=== PATIENT | male | born 1965 | race Caucasian/White ===

== ENCOUNTER 2017-07-12 18:54 | Inpatient (IN) | payer SELFPAY ==
[2017-07-12] MEDS ORDERED: Acetaminophen 325 MG TAB PO PRN (20:39)
[2017-07-12] MEDS ORDERED: HYDROcodone/Acetaminophen 5/325 mg Tablet PO PRN (20:39)
[2017-07-12] MEDS ORDERED: Piperacillin/Tazobactam 3.375 GM in Sodium Chloride 0.9% 100 ML IVPB SCH (20:45)
[2017-07-12] MEDS ORDERED: Piperacillin-Tazo-Dextrose,Iso 3.375 GM in Premix Bag 1 BAG IVPB SCH (21:00)
--- NOTE | 2017-07-12 21:15 | ULT ---
LEFT LOWER EXTREMITY VENOUS DOPPLER ULTRASOUND: History: Left lower extremity redness. Comparison: CT same day. FINDINGS: Real-time grayscale, color doppler and spectral analysis of the left lower extremity venous system wa s performed using a linear transducer. The common femoral, femoral, proximal portions of the greater saphenous and deep femoral veins as well as the popliteal and posterior tibial veins were interrogate d. Normal flow, augmentation, and compression. IMPRESSION: No deep venous thrombosis. POS: GRACE
[2017-07-12 21:55] VITALS: BMI 36.9
[2017-07-12] MEDS ORDERED: Ondansetron ODT 4 MG TAB SL PRN (22:06)
[2017-07-12] MEDS ORDERED: Ondansetron HCl/PF 4 MG/2 ML Vial IVP PRN (22:06)
[2017-07-12] MEDS ORDERED: Dextrose 5% in Water 1,000 ML IV PRN (22:07)
[2017-07-12] MEDS ORDERED: Dextrose 50% Abboject 50 ML SYRINGE IVP PRN (22:07)
[2017-07-12] MEDS ORDERED: Insulin Regular 300 UNITS/3 ML VIAL SC PRN (22:07)
[2017-07-12] MEDS ORDERED: Morphine 2 MG/ML SYRINGE SLOW IVP PRN ×2 (22:09→22:10)
[2017-07-12] MEDS: Sodium Chloride 0.9% 1,000 ML IV SCH (23:44)
[2017-07-12] MEDS: Famotidine 20 MG TAB PO SCH (23:45)
[2017-07-12] MEDS: Vancomycin HCl 1 GM in Premix Bag 1 BAG IVPB SCH (23:45)
[2017-07-13] MEDS: Piperacillin/Tazobactam 3.375 GM in Sodium Chloride 0.9% 100 ML IVPB SCH ×4 (03:58→20:23)
[2017-07-13 04:59] LABS: #Eosinphils 0.3 thou/uL (0.0-0.7); #Lymphocytes 1.6 thou/uL (1.20-3.40); %Basophils 0.4 % (0.0-1.0); %Eosinophils 3.5 % (0.0-10.0); %Monocytes 10.9 % (0.0-10.0); %Neutrophils 67.3 % (42.0-75.0); Hemoglobin 11.5 g/dL (14.0-18.0); Mean Corpuscular Hemoglobin 28.9 pg (27.0-31.0); Mean Corpuscular Volume 87.6 fl (80.0-94.0); Mean Platelet Volume 5.7 fL (7.4-10.4); Platelet Count 231 thou/uL (130-400); RBC Distribution Width 13.2 % (11.5-14.5); Red Blood Cell (RBC) Count 3.98 mill/uL (4.70-6.10)
[2017-07-13 05:22] LABS: Anion Gap 13 mmol/L (10-20); BUN (Urea Nitrogen) 17 mg/dL (8.9-20.6); Calc. Creatinine Clearance 124 mL/min (70-130); Carbon Dioxide 26 mmol/L (22-29); Chloride 102 mmol/L (98-107); Estimated GFR-MDRD 59; Glucose 115 mg/dL (70-105); Potassium 3.8 mmol/L (3.5-5.1); Sodium 137 mmol/L (136-145)
--- NOTE | 2017-07-13 06:17 | HP ---
CHIEF COMPLAINT: He came in because of cellulitis of left lower extremity. He was transferred from [place]. HISTORY OF PRESENT ILLNESS: This is a 52-year-old man with history of type 2 diabetes, status post amputation of left great toe in the past, couple years ago. He came in because he was having swelling of this left foot, leg, and toe for the last 3 days. He denies any fever, any chills, any chest pain, or any shortness of breath. When he came to ER, vital signs, pulse 77, blood pressure 161/79, respiratory rate 18, temperature 98.1. PAST MEDICAL HISTORY: He has hyperlipidemia, diabetes, hypertension. PAST SURGICAL HISTORY: Toe amputation, left great toe, few years ago. SOCIAL HISTORY: Denies alcohol use, drug use. No smoking history. In the ER, antibiotics given, Zosyn and vancomycin. FAMILY HISTORY: Positive for diabetes. REVIEW OF SYSTEMS: Constitutional: Negative. No chills. No fever. ENT: Negative for rhinorrhea, sore throat. Cardiovascular: Negative for chest pain , shortness of breath. Respiratory: Negative for cough, wheezing, or chest pain. Gastrointestinal: Negative for nausea, vomiting, or diarrhea. Genitourinary: Male. Negative for urinary urgency, frequency, hesitancy. Skin : Shows erythema on the left lower extremity. Endocrine: Negative for polyuria, polydipsia. PHYSICAL EXAMINATION: GENERAL: When examining, he is a middle-aged man lying in bed in no distress. VITAL SIGNS: Pulse 77, blood pressure 161/79, respiratory rate 18, temperature 98.1, saturation on room air. HEENT: Head is atraumatic, normocephalic. Pupils are round and reactive. Extraocular muscles intact. Ear and throat are normal. Tongue mucosa moist. NECK: Supple. No JVD. No thyromegaly. No carotid bruit. Trachea midline. No lymphadenopathy. LUNGS: Chest has a normal vesicular breathing. No added sound. No use of accessory muscles. No wheezing or rhonchi. CARDIOVASCULAR: S1, S2 audible. No S3, S4. 2/6 systolic murmur in left sternal border. ABDOMEN: Bowel sounds audible. Soft and nontender. No organomegaly. No guarding. No rigidity. EXTREMITIES: No pedal edema. No cyanosis. No clubbing. Left lower extremity : He has prior amputation of left great toe. Dense erythema in left foot with fluctuant stump of previous amputation. Lymphangitic spread in anterior leg up to the knee. Sensory, light touch. Pulses normal. Cap refill time is normal. NEUROLOGIC: Alert and oriented x3. No focal deficit. Cranial nerves II-XII normal. PSYCHIATRIC: Normal affect. Normal judgment. LABORATORY DATA: Lactate 0.7. Labs are not available at the time of dictation. ASSESSMENT AND PLAN: 1. Cellulitis of the left leg. Plan is to admit to the medical floor. IV Zosyn. IV vancomycin. Blood culture x2. IV fluid. 2. Type 2 diabetes. We will continue sliding scale. We will get the CBC and BMP stat. 3. Deep venous thrombosis prophylaxis with Lovenox. Surgical consultation will be obtained in the morning. CODE STATUS: FULL CODE. MTDD
[2017-07-13] MEDS: Famotidine 20 MG TAB PO SCH ×2 (08:13→20:23)
[2017-07-13] MEDS: Enoxaparin Sodium 40 MG/0.4 ML SYRINGE SC SCH (08:13)
[2017-07-13] MEDS: Vancomycin HCl 1 GM in Premix Bag 1 BAG IVPB SCH ×2 (09:22→23:00)
[2017-07-13] MEDS: Sodium Chloride 0.9% 1,000 ML IV SCH (11:00)
--- NOTE | 2017-07-13 13:05 | CON ---
DATE OF CONSULTATION: 07/13/2017 CHIEF COMPLAINT: Left foot cellulitis, abscess. HISTORY OF PRESENT ILLNESS: Patient is a 52-year-old obese diabetic white male. I saw him in 2014 f or left great toe osteomyelitis and performed a ray amputation which subsequently healed by secondary intention. I have not seen him in subsequent followup. At the time that I saw him, he was taking n o medications. He has subsequently been followed up with Dr. Baires and tells me he is on numerous medications. He cannot remember all of them, however, in his record are listed several medications f or hypertension, diabetes, and hypercholesterolemia. He notes that he has had erythema of his left foot for the past 3 weeks. He denies any injury to the foot or any pain or fever. He presented to the emergency room yesterday and was admitted to the [facility]. He has been afebrile with normal white blood cell count. I am consulted for furth er evaluation. He has already been started on intravenous antibiotics using Zosyn and vancomycin. PAST MEDICAL HISTORY: Hypertension, diabetes mellitus, and dyslipidemia. PAST SURGICAL HISTORY: Left great toe amputation. CURRENT MEDICATIONS: Apparently include carvedilol, Farxiga, insulin, lisinopril, metformin, simvast atin. ALLERGIES: No known drug allergies. PERSONAL/SOCIAL HISTORY: He is single, has never been , has no children. 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 REVIEW OF SYSTEMS: Otherwise, unremarkable. FAMILY HISTORY: Noncontributory. PHYSICAL EXAMINATION: VITAL SIGNS: Temperature 97.8, pulse 77, blood pressure 147/96. GENERAL: He is a well-developed, well-nourished, obese white male who is resting in bed in no acute distress. He is alert and oriented x3. He speaks very slowly and deliberately and I suspect that he is of diminished intellectual capacity. HEENT: Unremarkable. NECK: Supple. LUNGS: Clear to auscultation. CARDIAC: Regular rate and rhythm. ABDOMEN: Obese but soft and nontender. EXTREMITIES: He has significant erythema and swelling involving his left foot. He has a healed woun d from his left great toe amputation, but there is currently mildly raw area over the surface. There is a fluctuant area at the end of the toe amputation site. Because of the swelling, I am unable to palpate pulses, but his foot and lower leg are warm and I suspect circulation is adequate. PROCEDURE: The wound on the distal aspect of his left great toe was debrided using blunt dissection primarily. I sharply; however, excised the overlying skin and callus exposing ulcer which extended d own into the foot. When I would squeeze the foot, purulent material was expressed through this small tract. I dilated this with the hemostat. Cultures were obtained of this fluid. There is no foul s loly. I could not definitely palpate bone through the wound tract that I was able to probe. ASSESSMENT: Patient with a left foot abscess with obvious purulence. Cultures have been obtained. I will obtain the images of the foot to see if there is obvious evidence of osteomyelitis. If not, lelo falk may benefit from an MRI of the foot. He was on appropriate IV antibiotics and will require wound c are of the foot. I will discern over the next day or so whether he requires surgery for this or not. There is no obvious ulcer that penetrates to the bone and no definite clinical evidence of osteomye litis, pending radiologic studies.
--- NOTE | 2017-07-13 13:56 | RAD ---
LEFT FOOT 3 VIEWS: HISTORY: Osteomyelitis. FINDINGS: Lisfranc joint alignment is anatomic. Pes planus is apparent on the lateral view. There is amputation of the 1st ray at the level of the metatarsal head. No aggressive osseous destru ction remains. Osteophytosis is present throughout the foot. IMPRESSION: Big toe amputation. POS: LANETTE
--- NOTE | 2017-07-13 13:59 | PDOC.PN ---
- Subjective Encounter Start Date: 07/13/17 Encounter Start Time: 10:00 Pt seen for followup re: diabetic foot infection. Reports left foot pain. No fevers. - Objective MAR Reviewed: Yes Vital Signs & Weight: Vital Signs (12 hours) Temp Pulse Resp BP BP Pulse Ox 07/13/17 11:58 97.8 F 77 20 147/96 H 94 L 07/13/17 08:00 97.9 F 86 20 07/13/17 07:48 97.9 F 86 20 144/102 H 96 07/13/17 05:58 98.4 F 80 18 138/77 96 Weight Admit Weight 280 lb 1.6 oz Weight 280 lb 1.6 oz I&O: 07/12/17 07/13/17 07/14/17 06:59 06:59 06:59 Intake Total 1420 Output Total 1050 Balance 370 Result Diagrams: 07/13/17 04:11 07/13/17 04:11 Additional Labs: Accuchecks 07/13/17 07/13/17 07/12/17 11:42 04:52 21:54 POC Glucose 171 H 116 H 78 Phys Exam - Physical Examination Obese HEENT: moist MMs, oral pharynx no lesions Neck: supple Respiratory: clear to auscultation bilateral Cardiovascular: RRR Gastrointestinal: soft s/p L great toe amputation Neurological: moves all 4 limbs Psychiatric: normal affect Deviation from normal: L hennessy and foot rash Dx/Plan (1) Diabetic foot infection Code(s): E11.69 - TYPE 2 DIABETES MELLITUS WITH OTHER SPECIFIED COMPLICATION; L08.9 - LOCAL INFECTION OF THE SKIN AND SUBCUTANEOUS TISSUE, UNSP Status: Acute (2) HTN (hypertension) Code(s): I10 - ESSENTIAL (PRIMARY) HYPERTENSION Status: Chronic (3) Dyslipidemia Code(s): E78.5 - HYPERLIPIDEMIA, UNSPECIFIED Status: Chronic (4) Type II diabetes mellitus Status: Chronic - Plan continue antibiotics, PT/OT, out of bed/ambulate * . Monitor vital signs, titrate antihypertensives as needed. Continue statin. Continue IV antibiotics as below. Surgery consulted. Continue accuchecks, insulin sliding scale. Review of Systems - Review of Systems Constitutional: negative: fever, chills, sweats, weakness, malaise Respiratory: negative: Cough, Dry, Shortness of Breath, Hemoptysis, SOB with Excertion, Pleuritic Pain, Sputum, Wheezing Musculoskeletal: Leg Pain, Foot Pain. negative: Neck Pain, Shoulder Pain, Arm Pain, Back Pain, Hand Pain - Medications/Allergies Allergies/Adverse Reactions: Allergies Allergy/AdvReac Type Severity Reaction Status Date / Time No Known Allergies Allergy Verified 07/12/17 21:56 Medications: Current Medications Acetaminophen (Tylenol) 650 mg PO Q4H PRN PRN Reason: Headache/Fever or Pain Hydrocodone Bitart/Acetaminophen ([place] 5/325) 1 tab PO Q4H PRN PRN Reason: Moderate Pain (4-6) Enoxaparin Sodium (Lovenox) 40 mg SC 0900 [facility] Last Admin: 07/13/17 08:13 Dose: 40 mg Famotidine (Pepcid) 20 mg PO BID [facility] Last Admin: 07/13/17 08:13 Dose: 20 mg Sodium Chloride (Normal Saline 0.9%) 1,000 mls @ 100 mls/hr IV .Q10H [facility] Last Admin: 07/13/17 11:00 Dose: Not Given Piperacillin Sod/Tazobactam (Sod 3.375 gm/ Sodium Chloride) 100 mls @ 200 mls/ hr IVPB 0300,0900,1500,2100 [facility] Last Admin: 07/13/17 12:57 Dose: 100 mls Vancomycin HCl 1 gm/ Device 200 mls @ 200 mls/hr IVPB 1000,2200 [facility] Last Admin: 07/13/17 09:22 Dose: 200 mls Sodium Chloride (Flush - Normal Saline) 10 ml IVF Q12HR [facility] Last Admin: 07/13/17 08:16 Dose: Not Given Sodium Chloride (Flush - Normal Saline) 10 ml IVF PRN PRN PRN Reason: Saline Flush
[2017-07-13] MEDS ORDERED: Dextrose 5% in Water 1,000 ML IV PRN (14:36)
[2017-07-13] MEDS ORDERED: Dextrose 50% Abboject 50 ML SYRINGE IVP PRN (14:36)
[2017-07-14] MEDS: Sodium Chloride 0.9% 1,000 ML IV SCH ×2 (03:50→12:16)
[2017-07-14] MEDS: Piperacillin/Tazobactam 3.375 GM in Sodium Chloride 0.9% 100 ML IVPB SCH ×4 (03:53→20:54)
[2017-07-14] MEDS: Enoxaparin Sodium 40 MG/0.4 ML SYRINGE SC SCH (07:16)
[2017-07-14] MEDS: Famotidine 20 MG TAB PO SCH ×2 (07:16→20:53)
[2017-07-14] MEDS: Vancomycin HCl 1 GM in Premix Bag 1 BAG IVPB SCH ×2 (10:07→21:23)
[2017-07-14] MEDS: Insulin Regular 300 UNITS/3 ML VIAL SC PRN ×2 (12:18→20:55)
--- NOTE | 2017-07-14 12:38 | PDOC.PN ---
- Subjective Encounter Start Date: 07/14/17 Encounter Start Time: 09:20 Pt seen for followup re: diabetic foot infection. Denies fevers or chills. - Objective MAR Reviewed: Yes Vital Signs & Weight: Vital Signs (12 hours) Temp Pulse Resp BP Pulse Ox 07/14/17 08:00 97.9 F 70 20 136/82 96 07/14/17 07:30 98.0 F 70 18 07/14/17 05:00 98.0 F 70 18 146/84 H 94 L Weight Admit Weight 280 lb 1.6 oz Weight 280 lb 1.6 oz I&O: 07/13/17 07/14/17 07/15/17 06:59 06:59 06:59 Intake Total 1420 1920 Output Total 1050 1950 Balance 370 -30 Result Diagrams: 07/13/17 04:11 07/13/17 04:11 Additional Labs: Accuchecks 07/14/17 07/14/17 07/13/17 11:48 03:55 19:20 POC Glucose 208 H 144 H 140 H 07/13/17 15:09 POC Glucose 117 H Phys Exam - Physical Examination Obesity HEENT: moist MMs Neck: no nodes Respiratory: clear to auscultation bilateral Cardiovascular: RRR Gastrointestinal: soft, positive bowel sounds s/p L great toe amputation Neurological: moves all 4 limbs Psychiatric: normal affect Deviation from normal: L foot in dressing Dx/Plan (1) Diabetic foot infection Code(s): E11.69 - TYPE 2 DIABETES MELLITUS WITH OTHER SPECIFIED COMPLICATION; L08.9 - LOCAL INFECTION OF THE SKIN AND SUBCUTANEOUS TISSUE, UNSP Status: Acute (2) HTN (hypertension) Code(s): I10 - ESSENTIAL (PRIMARY) HYPERTENSION Status: Chronic (3) Dyslipidemia Code(s): E78.5 - HYPERLIPIDEMIA, UNSPECIFIED Status: Chronic (4) Type II diabetes mellitus Status: Chronic - Plan continue antibiotics, PT/OT, out of bed/ambulate * . Continue IV antibiotics as below, follow cultures. Continue accuchecks, insulin sliding scale. Titrate antihypertensives as needed, continue to monitor vital signs. Review of Systems - Review of Systems Constitutional: negative: fever, chills, sweats, weakness, malaise Respiratory: negative: Cough, Dry, Shortness of Breath, Hemoptysis, SOB with Excertion, Pleuritic Pain, Sputum, Wheezing Cardiovascular: negative: chest pain, palpitations, orthopnea, paroxysmal nocturnal dyspnea, edema, light headedness - Medications/Allergies Allergies/Adverse Reactions: Allergies Allergy/AdvReac Type Severity Reaction Status Date / Time No Known Allergies Allergy Verified 07/12/17 21:56 Medications: Current Medications Acetaminophen (Tylenol) 650 mg PO Q4H PRN PRN Reason: Headache/Fever or Pain Hydrocodone Bitart/Acetaminophen ([place] 5/325) 1 tab PO Q4H PRN PRN Reason: Moderate Pain (4-6) Dextrose/Water (Dextrose 50%) 25 gm IVP PRN PRN PRN Reason: HYPOGLYCEMIA PROTOCOL Enoxaparin Sodium (Lovenox) 40 mg SC 0900 [facility] Last Admin: 07/14/17 07:16 Dose: 40 mg Famotidine (Pepcid) 20 mg PO BID [facility] Last Admin: 07/14/17 07:16 Dose: 20 mg Glucagon (Glucagon) 1 mg IM PRN PRN PRN Reason: HYPOGLYCEMIA PROTOCOL Sodium Chloride (Normal Saline 0.9%) 1,000 mls @ 100 mls/hr IV .Q10H [facility] Last Admin: 07/14/17 12:16 Dose: Not Given Piperacillin Sod/Tazobactam (Sod 3.375 gm/ Sodium Chloride) 100 mls @ 200 mls/ hr IVPB 0300,0900,1500,2100 [facility] Last Admin: 07/14/17 08:52 Dose: 100 mls Vancomycin HCl 1 gm/ Device 200 mls @ 200 mls/hr IVPB 1000,2200 [facility] Last Admin: 07/14/17 10:07 Dose: 200 mls Dextrose/Water (D5w) 1,000 mls @ 0 mls/hr IV INF PRN; As Directed PRN Reason: HYPOGLYCEMIA PROTOCOL Insulin Human Regular (Humulin R) 0 units SC .MODERATE SLIDING SC PRN; Protocol PRN Reason: MODERATE SLIDING SCALE Last Admin: 07/14/17 12:18 Dose: 4 unit Sodium Chloride (Flush - Normal Saline) 10 ml IVF Q12HR [facility] Last Admin: 07/14/17 07:17 Dose: Not Given Sodium Chloride (Flush - Normal Saline) 10 ml IVF PRN PRN PRN Reason: Saline Flush
--- NOTE | 2017-07-14 15:28 | CON ---
DATE OF CONSULTATION: 07/14/2017 REASON FOR CONSULTATION: Left foot and left leg inflammatory process. HISTORY OF PRESENT ILLNESS: A 52-year-old patient that was known to me from prior visit in 2015, who has a history of type 2 diabetes mellitus and neuropathy. He underwent amputation of the left first toe for management of osteomyelitis. The area had healed properly. The patient had good vascular s upply. He leaves in ranch owned by his parents, and he works in a property as branch services manager, doing vari ous activities. Over the past few days, he has noticed an inflammatory process to left foot at the b ase of the amputation site ascending through the left leg. He went to see a doctor at [facility] Room and then transferred for admission. The patient had a CT scan on admission of the extremit y, this was noncontrast study and it showed no evidence of bony destruction, some soft tissue swellin g. Currently, Mr. Mann is awake and alert. Denies any headaches. No visual symptoms, sore throat , odynophagia, dysphagia. No cough or sputum production or chest pain. No abdominal pain or diarrhe a. No genitourinary symptoms. No other joint symptoms. PAST MEDICAL HISTORY: Diabetes mellitus type 2, prior left first toe amputation, hyperlipidemia, and hypertension. SOCIAL HISTORY: Never a smoker. Lives in his parents ranch in [place]. ALLERGIES: Negative. CURRENT MEDICATIONS: [place], dextrose, Lovenox, Pepcid, glucagon, insulin, Zosyn, and vancomycin. PHYSICAL EXAMINATION: VITAL SIGNS: Other than the mild elevation in systolic blood pressure, they are normal. No fever. SKIN: Shows the area of erythema involving the foot. There is an area of blistering and what appear s to be an abscess which may be superficial or deep at the base of the left first metatarsal distal a spect. There is erythema ascending from the foot towards the left leg all the way to the mid aspect of the left anterior leg. The patient has a peripheral IV access. No lymphadenopathy. HEENT: Ocular movements are conjugate. Still with quite a few teeth in place with some decay. NECK: Supple. No jugular venous distention or carotid bruits. No cardiomegaly. ABDOMEN: Slightly distended, but not tender. No ascites. No bladder distention or organomegaly. EXTREMITIES: Pulses are 1+ in dorsalis pedis and posterior tibialis. There is erythema in the left leg as noted above. NEUROLOGIC: Nonfocal. Cognitive function appears to be normal. LABORATORY: White cell count 9.0, hemoglobin 11.5, platelets 231, 67% neutrophils. Creatinine 1.28, calcium 10.0. Vancomycin trough 12. Cultures from the foot showed Staphylococcus aureus pending chisholm sceptibilities. Blood cultures x2, no growth for 48 hours. Plain films with no evidence of osteolys is. ASSESSMENT: Type 2 diabetes, neuropathy and now inflammatory changes of the left lower extremity, po ssible abscess at the base of the left first metatarsal ray. DISCUSSION: We will order an MRI to evaluate further that area may need surgical debridement at the little abscess. There is no osteo then just conversion to oral regimen for completion of treatment. The susceptibilities of the organism will have to be followed up for to decide on final regimen for discharge planning. If there is evidence of osteomyelitis, then will need IV treatment for protracte d period of time and may need further surgical intervention.
[2017-07-14] MEDS ORDERED: Gadobenate Dimeglumine 529 MG/1 ML (20ML VIAL) ONE (15:58)
--- NOTE | 2017-07-14 16:06 | PRG ---
DATE OF SERVICE: 07/14/2017 HISTORY OF PRESENT ILLNESS: This is hospital day #3 for Mr. Mann in treatment of a left foot absce ss with cellulitis. Yesterday, I drained a plantar abscess and debrided overlying callus at bedside. I cannot definitely find a communication with the bone. I subsequently ordered left foot films tone t revealed no definite evidence of bony destruction or osteomyelitis. I therefore recommended contin ued wound care and IV antibiotics and I consulted Dr. Augustine for his input regarding the type and rudolph th of antibiotic coverage. The initial cultures that I obtained yesterday show Staphylococcus aureus with susceptibilities still pending. The patient has no complaints. I have recommended that he be nonweightbearing on the left foot until this heals and he has already been seen by physical therapy regarding methods of offloading the foot . On examination, he remains afebrile with normal vital signs. His left leg is without any swelling down to the level of the ankle. He has a dressing present on his foot as this was changed by Wound care team today. ASSESSMENT AND PLAN: Patient with left foot abscess and cellulitis. He appears to be without eviden ce of osteomyelitis. Dr. Augustine has ordered an MRI to further evaluate this. I will continue to foll ow him at this point. I will check the wound to make sure to make an appropriate progress over the n ext day or two.
--- NOTE | 2017-07-14 19:04 | MRI ---
MRI LEFT FOOT WITH AND WITHOUT CONTRAST 07/14/17 INDICATION: Osteomyelitis, cellulitis. FINDINGS: There is abnormal marrow edema with enhancement involving the proximal aspect of the fourth metatarsa l. Evidence of prior partial amputation of the first ray. Scattered soft tissue edema is present. The re are focal small fluid collections at the residua of the first ray, some of which do communicate wi th the skin surface compatible with skin ulcerations. No large drainable abscess is otherwise demonst rated. There is mild postcontrast signal alteration of the fifth digit and may be related to artifact as there is no obvious edema in this region. IMPRESSION: 1. Findings most consistent with osteomyelitis at the proximal fourth metatarsal. 2. Soft tissue ulcerations/small abscess formation at the residua from great toe amputation invo lving predominantly the plantar aspect of the soft tissues. 3. Cellulitis. 4. There is signal alteration on postcontrast imaging of the fifth digit which may be related to artifact given absence of obvious edema by precontrast imaging. POS: MELINDA
[2017-07-15] MEDS: Sodium Chloride 0.9% 1,000 ML IV SCH ×3 (00:07→21:14)
[2017-07-15] MEDS: Piperacillin/Tazobactam 3.375 GM in Sodium Chloride 0.9% 100 ML IVPB SCH ×3 (02:25→14:19)
[2017-07-15] MEDS: Insulin Regular 300 UNITS/3 ML VIAL SC PRN ×3 (05:48→21:09)
[2017-07-15] MEDS: Enoxaparin Sodium 40 MG/0.4 ML SYRINGE SC SCH (08:34)
[2017-07-15] MEDS: Famotidine 20 MG TAB PO SCH ×2 (08:34→21:09)
[2017-07-15] MEDS: Vancomycin HCl 1 GM in Premix Bag 1 BAG IVPB SCH (09:15)
--- NOTE | 2017-07-15 16:40 | PDOC.PN ---
- Subjective Encounter Start Date: 07/15/17 Encounter Start Time: 09:40 Pt seen for followup re: diabetic foot infection. Denies fevers or chills. - Objective MAR Reviewed: Yes Vital Signs & Weight: Vital Signs (12 hours) Temp Pulse Resp BP Pulse Ox 07/15/17 12:02 98.0 F 83 18 149/74 H 94 L 07/15/17 08:30 97.8 F 68 16 96 07/15/17 07:59 97.8 F 68 16 152/85 H 96 07/15/17 04:48 97.8 F 65 18 147/86 H 97 Weight Admit Weight 280 lb 1.6 oz Weight 280 lb 1.6 oz I&O: 07/14/17 07/15/17 07/16/17 06:59 06:59 06:59 Intake Total 1919 1899 Output Total 1949 1999 Balance -30 -100 Result Diagrams: 07/13/17 04:11 07/13/17 04:11 Additional Labs: Accuchecks 07/15/17 07/15/17 07/14/17 12:02 05:48 20:52 POC Glucose 185 H 172 H 172 H 07/14/17 16:40 POC Glucose 144 H Phys Exam - Physical Examination Obese HEENT: moist MMs Neck: supple Respiratory: clear to auscultation bilateral Cardiovascular: RRR Gastrointestinal: soft Neurological: moves all 4 limbs Psychiatric: normal affect Deviation from normal: L foot dressing Dx/Plan (1) Diabetic foot infection Code(s): E11.69 - TYPE 2 DIABETES MELLITUS WITH OTHER SPECIFIED COMPLICATION; L08.9 - LOCAL INFECTION OF THE SKIN AND SUBCUTANEOUS TISSUE, UNSP Status: Acute (2) HTN (hypertension) Code(s): I10 - ESSENTIAL (PRIMARY) HYPERTENSION Status: Chronic (3) Dyslipidemia Code(s): E78.5 - HYPERLIPIDEMIA, UNSPECIFIED Status: Chronic (4) Type II diabetes mellitus Status: Chronic - Plan continue antibiotics, PT/OT * . Continue IV antibiotics as below. Osteomyelitis on MRI, awqait surgical input. Cellulitic area improved. Continue accuchecks, insulin. Review of Systems - Review of Systems Constitutional: negative: fever, chills, sweats, weakness, malaise Respiratory: negative: Cough, Dry, Shortness of Breath, Hemoptysis, SOB with Excertion, Pleuritic Pain, Sputum, Wheezing Cardiovascular: negative: chest pain, palpitations, orthopnea, paroxysmal nocturnal dyspnea, edema, light headedness Musculoskeletal: Leg Pain - Medications/Allergies Allergies/Adverse Reactions: Allergies Allergy/AdvReac Type Severity Reaction Status Date / Time No Known Allergies Allergy Verified 07/12/17 21:56 Medications: Current Medications Acetaminophen (Tylenol) 650 mg PO Q4H PRN PRN Reason: Headache/Fever or Pain Hydrocodone Bitart/Acetaminophen ([place] 5/325) 1 tab PO Q4H PRN PRN Reason: Moderate Pain (4-6) Dextrose/Water (Dextrose 50%) 25 gm IVP PRN PRN PRN Reason: HYPOGLYCEMIA PROTOCOL Enoxaparin Sodium (Lovenox) 40 mg SC 0900 [facility] Last Admin: 07/15/17 08:34 Dose: 40 mg Famotidine (Pepcid) 20 mg PO BID [facility] Last Admin: 07/15/17 08:34 Dose: 20 mg Glucagon (Glucagon) 1 mg IM PRN PRN PRN Reason: HYPOGLYCEMIA PROTOCOL Sodium Chloride (Normal Saline 0.9%) 1,000 mls @ 100 mls/hr IV .Q10H [facility] Last Admin: 07/15/17 09:15 Dose: 1,000 mls Piperacillin Sod/Tazobactam (Sod 3.375 gm/ Sodium Chloride) 100 mls @ 200 mls/ hr IVPB 0300,0900,1500,2100 [facility] Last Admin: 07/15/17 14:19 Dose: 100 mls Vancomycin HCl 1 gm/ Device 200 mls @ 200 mls/hr IVPB 1000,2200 [facility] Last Admin: 07/15/17 09:15 Dose: 200 mls Dextrose/Water (D5w) 1,000 mls @ 0 mls/hr IV INF PRN; As Directed PRN Reason: HYPOGLYCEMIA PROTOCOL Insulin Human Regular (Humulin R) 0 units SC .MODERATE SLIDING SC PRN; Protocol PRN Reason: MODERATE SLIDING SCALE Last Admin: 07/15/17 12:25 Dose: 2 unit Sodium Chloride (Flush - Normal Saline) 10 ml IVF Q12HR [facility] Last Admin: 07/15/17 08:34 Dose: Not Given Sodium Chloride (Flush - Normal Saline) 10 ml IVF PRN PRN PRN Reason: Saline Flush
--- NOTE | 2017-07-15 17:17 | PRG ---
DATE OF SERVICE: 07/15/2017 SUBJECTIVE: No headaches, visual symptoms, sore throat, odynophagia, or dysphagia. No cough or sput um production. No chest pain. Much pain in the foot area. OBJECTIVE: VITAL SIGNS: Normal except for slight elevation in systolic blood pressure. LUNGS: Clear. HEART: S1, S2, regular rate. ABDOMEN: Soft. EXTREMITIES: The left foot with no changes in the appearance. LABORATORY DATA: White cell count 9000, hemoglobin 11.5 and fluid cultures with methicillin-sensitiv e Staphylococcus aureus. MRI with prior amputation of first ray, scattered soft tissue edema, focal small fluid collections residual first ray some which communicate with skin surface. No drainable ab scess, mild postcontrast signal alteration of the fifth digit, abnormal marrow edema with enhancement in the proximal aspect of the fourth metatarsal. ASSESSMENT AND DISCUSSION: Type 2 diabetes, neuropathy, inflammatory changes left lower extremity an d MRI with findings that are worrisome for metatarsal osteo. The foot x-ray did not show osseous sangeeta truction and we could attempt medical treatment with Rocephin plus oral Flagyl and PICC line placemen t.
[2017-07-15] MEDS: cefTRIAXone\\ROCEPHIN 2 GM in Sodium Chloride 0.9% 100 ML IVPB SCH (18:15)
[2017-07-15] MEDS: metroNIDAZOLE 500 MG TAB PO SCH (21:09)
[2017-07-16] MEDS: Sodium Chloride 0.9% 1,000 ML IV SCH ×3 (02:13→12:59)
[2017-07-16] MEDS: Insulin Regular 300 UNITS/3 ML VIAL SC PRN ×4 (05:58→20:32)
[2017-07-16] MEDS: Enoxaparin Sodium 40 MG/0.4 ML SYRINGE SC SCH (09:26)
[2017-07-16] MEDS: Famotidine 20 MG TAB PO SCH ×2 (09:27→20:00)
[2017-07-16] MEDS: metroNIDAZOLE 500 MG TAB PO SCH ×3 (09:27→20:00)
--- NOTE | 2017-07-16 14:13 | PDOC.PN ---
- Subjective Encounter Start Date: 07/16/17 Encounter Start Time: 09:00 Pt seen for followup re: osteomyelitis. Says he has a small amount of pain L foot. - Objective MAR Reviewed: Yes Vital Signs & Weight: Vital Signs (12 hours) Temp Pulse Resp BP Pulse Ox 07/16/17 08:38 97.5 F L 72 20 161/94 H 93 L 07/16/17 08:00 97.5 F L 72 20 07/16/17 04:00 97.5 F L 71 18 153/85 H 96 Weight Admit Weight 280 lb 1.6 oz Weight 280 lb 1.6 oz I&O: 07/15/17 07/16/17 07/17/17 06:59 06:59 06:59 Intake Total 1899 2900 Output Total 1999 1725 1850 Balance -100 1175 -1850 Result Diagrams: 07/13/17 04:11 07/13/17 04:11 Additional Labs: Accuchecks 07/16/17 07/16/17 07/15/17 11:05 04:32 19:16 POC Glucose 263 H 216 H 161 H 07/15/17 16:52 POC Glucose 133 H Phys Exam - Physical Examination Obesity HEENT: moist MMs Respiratory: clear to auscultation bilateral Cardiovascular: RRR, no rub Gastrointestinal: soft, non-tender Neurological: moves all 4 limbs Psychiatric: normal affect Deviation from normal: L foot dressing Dx/Plan (1) Osteomyelitis Code(s): M86.9 - OSTEOMYELITIS, UNSPECIFIED Status: Acute (2) Diabetic foot infection Code(s): E11.69 - TYPE 2 DIABETES MELLITUS WITH OTHER SPECIFIED COMPLICATION; L08.9 - LOCAL INFECTION OF THE SKIN AND SUBCUTANEOUS TISSUE, UNSP Status: Acute (3) HTN (hypertension) Code(s): I10 - ESSENTIAL (PRIMARY) HYPERTENSION Status: Chronic (4) Dyslipidemia Code(s): E78.5 - HYPERLIPIDEMIA, UNSPECIFIED Status: Chronic (5) Type II diabetes mellitus Status: Chronic - Plan continue antibiotics, PT/OT, out of bed/ambulate * . Continue IV ceftriaxone. Awaiting PICC line placement. Continue accuchecks, insulin. Review of Systems - Review of Systems Constitutional: negative: fever, chills, sweats, weakness, malaise Cardiovascular: negative: chest pain, palpitations, orthopnea, paroxysmal nocturnal dyspnea, edema, light headedness - Medications/Allergies Allergies/Adverse Reactions: Allergies Allergy/AdvReac Type Severity Reaction Status Date / Time No Known Allergies Allergy Verified 07/12/17 21:56 Medications: Current Medications Acetaminophen (Tylenol) 650 mg PO Q4H PRN PRN Reason: Headache/Fever or Pain Hydrocodone Bitart/Acetaminophen ([place] 5/325) 1 tab PO Q4H PRN PRN Reason: Moderate Pain (4-6) Dextrose/Water (Dextrose 50%) 25 gm IVP PRN PRN PRN Reason: HYPOGLYCEMIA PROTOCOL Enoxaparin Sodium (Lovenox) 40 mg SC 0900 [facility] Last Admin: 07/16/17 09:26 Dose: 40 mg Famotidine (Pepcid) 20 mg PO BID [facility] Last Admin: 07/16/17 09:27 Dose: 20 mg Glucagon (Glucagon) 1 mg IM PRN PRN PRN Reason: HYPOGLYCEMIA PROTOCOL Sodium Chloride (Normal Saline 0.9%) 1,000 mls @ 100 mls/hr IV .Q10H [facility] Last Admin: 07/16/17 12:59 Dose: 1,000 mls Dextrose/Water (D5w) 1,000 mls @ 0 mls/hr IV INF PRN; As Directed PRN Reason: HYPOGLYCEMIA PROTOCOL Ceftriaxone Sodium 2 gm/ (Sodium Chloride) 100 mls @ 200 mls/hr IVPB Q24HR [facility] Last Admin: 07/15/17 18:15 Dose: 100 mls Insulin Human Regular (Humulin R) 0 units SC .MODERATE SLIDING SC PRN; Protocol PRN Reason: MODERATE SLIDING SCALE Last Admin: 07/16/17 13:00 Dose: 6 unit Metronidazole (Flagyl) 500 mg PO TID [facility] Last Admin: 07/16/17 09:27 Dose: 500 mg Sodium Chloride (Flush - Normal Saline) 10 ml IVF Q12HR [facility] Last Admin: 07/16/17 09:27 Dose: Not Given Sodium Chloride (Flush - Normal Saline) 10 ml IVF PRN PRN PRN Reason: Saline Flush
--- NOTE | 2017-07-16 15:37 | SPC ---
LEFT UPPER EXTREMITY PICC LINE ULTRASOUND AND FLUOROSCOPIC GUIDANCE: PROCEDURE: After informed consent had been obtained, the patient was placed on the interventional suite table in a supine position. The left arm was prepped and draped in a standard sterile fashion. Topical anes thesia was achieved utilizing 1% Lidocaine and sodium bicarbonate. Under real-time sonography, the b asilic vein of the left upper extremity was accessed with a small caliber needle with venous flash pr esent at the needle hub. A guidewire was then advanced in to the needle, and under real-time fluoros copy, the guidewire was advanced to the level of the inferior vena cava to confirm appropriate venous placement. A small skin incision was made and the needle was removed. Over the guidewire, a single lumen PICC line was cut to 44 cm. The PICC line was advanced under real-time fluoroscopy over the g uidewire to the level of the cavoatrial junction. The guidewire and peelaway sheath were then remove d. PICC line flushed and aspirated appropriately and was secured to the lumen upper extremity. Ther e were no procedural complications. Radiation Exposure Data: 0 minutes intermittent fluoroscopy, 228 mGy*cm^2. IMPRESSION: Technically successful ultrasound and fluoroscopic-guided left PICC line placement, as above. POS: LANETTE
[2017-07-16] MEDS ORDERED: Heparin 1,000 UNITS/ML VIAL ONE (15:47)
[2017-07-16] MEDS: cefTRIAXone\\ROCEPHIN 2 GM in Sodium Chloride 0.9% 100 ML IVPB SCH (17:38)
[2017-07-17] MEDS: Sodium Chloride 0.9% 1,000 ML IV SCH ×2 (03:15→07:56)
[2017-07-17] MEDS: Insulin Regular 300 UNITS/3 ML VIAL SC PRN ×2 (05:36→12:57)
[2017-07-17 07:43] VITALS: BP 138/63; TEMP 97.6
[2017-07-17] MEDS: Famotidine 20 MG TAB PO SCH (07:52)
[2017-07-17] MEDS: Enoxaparin Sodium 40 MG/0.4 ML SYRINGE SC SCH (07:53)
[2017-07-17] MEDS: metroNIDAZOLE 500 MG TAB PO SCH ×2 (07:53→12:57)
--- NOTE | 2017-07-17 08:44 | PRG ---
DATE OF SERVICE: 07/17/2017 HISTORY OF PRESENT ILLNESS: Mr. Mann has been hospitalized for 6 days now in regards to the ulcer on the plantar aspect of his left foot with associated abscess and cellulitis. The abscess was drain ed and foot was debrided at bedside by myself on the day he arrived. Subsequent MRI ordered by Dr. Laz felipe did suggest osteomyelitis of the distal aspect of the second metatarsal bone. Since there was n o direct ulcer communication with the bone and the abscess had been appropriately drained, I recommen ded nonoperative treatment of this. Dr. Augustine has therefore recommended a 6-week course of intraveno us antibiotics. The patient has no complaints. He has been undergoing wound care and receiving antibiotics since adm ission to the hospital. Final cultures from the area that I drained revealed Staphylococcus aureus that is sensitive to most antibiotics and is not MRSA. It is sensitive to all of the cephalosporins and he is currently receiv ing Rocephin. PHYSICAL EXAMINATION: VITAL SIGNS: He is afebrile, pulse is 66, blood pressure 138/63. EXTREMITIES: His left foot dressing was intact and not taken down. There is no evidence of swelling or erythema involving the ankle or lower leg. ASSESSMENT: Patient with diabetic left foot ulcer with underlying infection and possible osteomyelit is. PLAN: Continue IV antibiotics and wound care. The patient may be discharged at anytime from my [facility]. There is nothing further surgical to do. He already has a PICC line. As soon as his outpat ient intravenous antibiotics and wound care can be arranged then he is stable for discharge. I will see him in the future as needed.
--- NOTE | 2017-07-17 11:25 | DIS ---
DATE OF ADMISSION: 07/12/2017 DATE OF DISCHARGE: 07/17/2017 PRIMARY CARE PHYSICIAN: Sandro Baires MD DISCHARGE DIAGNOSES: 1. Diabetic foot infection. 2. Osteomyelitis of the proximal fourth metatarsal. 3. Cellulitis. CONSULTATIONS DURING THIS HOSPITALIZATION: General Surgery, Dr. Pruitt; Infectious Diseases, Dr. Mishra. CONDITION OF PATIENT ON THE DAY OF DISCHARGE: Stable. I assessed Mr. Mann on the day of discharge . He denies any chest pain or shortness of breath. Vital signs are stable. Foot wound looks clean. DISCHARGE MEDICATIONS: Ceftriaxone 2 g intravenously daily until 08/28/2017, Flagyl 500 mg 3 times a day until 08/16/2017, Coreg 2.5 mg 2 times a day, Farxiga 5 mg daily, Toujeo at bedtime as directed, lisinopril 5 mg 2 times a day, metformin 1000 mg daily, Flagyl 500 mg 3 times a day until 08/16/2017 , and simvastatin 40 mg at bedtime. HOSPITAL COURSE: Mr. Mann is a pleasant 52-year-old gentleman who was admitted to [facility] for left diabetic foot infection. He was seen by General Surgery Service. He unde rwent debridement of left foot abscess with obvious purulence. He was treated with intravenous antib iotics. He went on to have a left lower extremity MRI, which showed findings most consistent with os teomyelitis of the proximal fourth metatarsal, soft tissue ulcerations/small abscess formation at the residual from great toe amputation, cellulitis. He was seen by Infectious Diseases Service and recommended intravenous antibiotic therapy. He had a PICC line placed. He is being discharged home in a stable condition. Wound cultures grew Staphyloco ccus aureus that was resistant to piperacillin, ofloxacin, moxifloxacin, levofloxacin, ciprofloxacin, amoxicillin, but sensitive to amoxicillin/clavulanic acid, azithromycin, cefaclor, cefepime, cefotax varinder, ceftazidime, ceftriaxone, cefuroxime, clarithromycin, clindamycin, doxycycline, erythromycin, ge ntamicin, imipenem, linezolid, oxacillin, rifampin, tetracycline, trimethoprim/sulfamethoxazole, and vancomycin. At this point in time, arrangements are being made for intravenous therapy either at [place] or in [facility]. Many thanks for allowing me to participate in your patient's care. Please feel free to contact me wi th any questions or concerns. DISCHARGE DESTINATION: Home. TOTAL AMOUNT OF TIME SPENT COORDINATING THIS DISCHARGE: 33 minutes.
[2017-07-17] MEDS: cefTRIAXone\\ROCEPHIN 2 GM in Sodium Chloride 0.9% 100 ML IVPB SCH (12:57)
[2017-07-17] MEDS ORDERED: cefTRIAXone\\ROCEPHIN 2 GM in Sodium Chloride 0.9% 100 ML IVPB SCH (13:00)
== END 2017-07-17 14:17 | disposition home or self-care (01) | DRG 638 ==
LOC: ERS 18:54 → T4-B 21:33
PROVIDERS: ADMIT Family Medicine; ATTEND Family Medicine
PROC: 0HBNXZZ Excision of Left Foot Skin, External Approach (ICD-10-PCS; principal; 2017-07-12)
PROC: 02HV33Z Insertion of Infusion Device into Superior Vena Cava, Percutaneous Approach (ICD-10-PCS; 2017-07-16)
PROC: B5181ZA Fluoroscopy of Superior Vena Cava using Low Osmolar Contrast, Guidance (ICD-10-PCS; 2017-07-16)
DX: E11.69 Type 2 diabetes mellitus with other specified complication (principal); L03.116 Cellulitis of left lower limb; M86.9 Osteomyelitis, unspecified; L02.612 Cutaneous abscess of left foot; B95.61 Methicillin susceptible Staphylococcus aureus infection as the cause of diseases classified elsewhere; E66.9 Obesity, unspecified; E78.5 Hyperlipidemia, unspecified; I10 Essential (primary) hypertension; Z89.412 Acquired absence of left great toe; Z68.37 Body mass index [BMI] 37.0-37.9, adult; Z79.84 Long term (current) use of oral hypoglycemic drugs
CPT/HCPCS: 36415; 36416; 36569; 80048; 80202; 83605; 85025; 87070; 87077; 87186; 87205; 96374; A4216; A9579; C1751; G8978-GP-CJ; G8979-GP-CI; J0696; J1644; J1650; J2543; J3370; J7050

== ENCOUNTER 2020-08-14 13:52 | Inpatient (IN) | payer SELFPAY ==
[2020-08-14 14:51] LABS: Hemoglobin 11.6 g/dL (14.0-18.0); Mean Corpuscular Hemoglobin 30.5 pg (27.0-31.0); Mean Corpuscular Volume 87.7 fL (78.0-98.0); Red Blood Cell (RBC) Count 3.82 mill/uL (4.70-6.10); White Blood Cell (WBC) Count 10.5 thou/uL (4.8-10.8)
[2020-08-14 14:52] LABS: #Neutrophils 8.7 thou/uL (1.40-6.50); %Basophils 0.3 % (0.0-1.0); %Eosinophils 0.6 % (0.0-10.0); %Lymphocytes 10.4 % (21.0-51.0); %Monocytes 5.7 % (0.0-10.0); Mean Corpuscular HGB CONC 34.7 g/dL (32.0-36.0); Mean Platelet Volume 6.5 fL (7.4-10.4); Platelet Count 252 thou/uL (130-400); RBC Distribution Width 14.2 % (11.5-14.5)
[2020-08-14] MEDS ORDERED: Piperacillin/Tazobactam 3.375 GM VIAL ONE (14:52)
[2020-08-14 14:53] LABS: #Eosinphils 0.1 thou/uL (0.0-0.7); #Lymphocytes 1.1 thou/uL (1.20-3.40); #Monocytes 0.6 thou/uL (0.11-0.59)
[2020-08-14] MEDS ORDERED: VANCOMYCIN 2 GRAM/400 ML BAG 2 GM in Premix Bag 1 BAG IVPB SCH (15:00)
--- NOTE | 2020-08-14 15:04 | RAD ---
LEFT FOOT 3 VIEWS: Date: 08/14/2020 HISTORY: Water blisters on foot. Left foot pain. COMPARISON: 07/05/2020. FINDINGS: Postop changes of disarticulation at the first MTP joint are again seen. There chronic remodeling of the first metatarsal head. Subluxations of the second and third MTP joints are again noted. No acute fracture, dislocation, bony destruction, or periosteal reaction is seen. IMPRESSION: No definite evidence of osteomyelitis. POS: SERENITY
--- NOTE | 2020-08-14 15:07 | RAD ---
XR Chest 1 View Portable HISTORY: Concern for infection. COMPARISON: 07/21/2020 exam FINDINGS: Heart size and mediastinum are within normal limits. The lungs are clear of any infiltrates . No bony findings. IMPRESSION: No active intrathoracic disease.
[2020-08-14 15:28] LABS: ALT (SGPT) 25 U/L (8-55); AST (SGOT) 38 U/L (5-34); Albumin 4.4 g/dL (3.5-5.0); Alkaline Phosphatase 69 U/L (40-110); Anion Gap 16 mmol/L (10-20); BUN (Urea Nitrogen) 38 mg/dL (8.4-25.7); Bilirubin, Total 0.5 mg/dL (0.2-1.2); Calc. Creatinine Clearance 0 mL/min (70-130); Carbon Dioxide 24 mmol/L (22-29); Chloride 105 mmol/L (98-107); Glucose 109 mg/dL (70-105); Potassium 4.8 mmol/L (3.5-5.1); Protein, Total 7.4 g/dL (6.0-8.3); Sodium 140 mmol/L (136-145)
--- NOTE | 2020-08-14 17:13 | ULT ---
ARTERIAL DOPPLER STUDY LEFT LOWER EXTREMITY: Indications: Left lower extremity pain and edema. Redness and blisters to the left leg. Technique: Arteries of the left lower extremity evaluated with ultrasound and doppler with color dopp ler and spectral analysis. FINDINGS: The left common femoral artery shows a biphasic waveform. The profunda is monophasic. Superficial femoral arteries shows triphasic waveform in its proximal mid portion. Biphasic waveform distally. The popliteal artery is triphasic. The anterior tibial artery and posterior tibial artery are triphasic. Dorsal pedis is biphasic. IMPRESSION: No evidence of significant arterial disease in the left lower extremity. Profunda is monophasic. This may be technical in nature. The other arteries show either biphasic or triphasic waveform and demons trate normal velocities. POS: AGW
[2020-08-14] MEDS ORDERED: Dextrose 50% Abboject 50 ML SYRINGE ONE (17:21)
[2020-08-14 18:15] LABS: SARS-CoV-2 NAA Rapid Test Not Detected (NotDetected)
[2020-08-14] MEDS ORDERED: Acetaminophen 650 MG Suppository PR PRN (18:55)
[2020-08-14] MEDS ORDERED: Acetaminophen 325 MG TAB PO PRN (18:55)
[2020-08-14] MEDS ORDERED: Ondansetron ODT 4 MG TAB PO PRN (18:55)
[2020-08-14] MEDS ORDERED: Ondansetron PF 4 MG/2 ML Vial IVP PRN (18:55)
[2020-08-14] MEDS ORDERED: HumaLOG 300 UNITS/3 ML VIAL SC PRN (19:18)
[2020-08-14] MEDS ORDERED: Dextrose 50% Abboject 50 ML SYRINGE SLOW IVP PRN (19:18)
--- NOTE | 2020-08-14 19:46 | PDOC.HHP ---
Hospitalist HPI History of Present Illness: ADMISSION DATE: 08/14/2020 TIME OF ASSESSMENT: 1800 PRIMARY CARE PHYSICIAN: Dr. Baires CHIEF COMPLAINT: Wound to left second toe HPI: This is a 55-year-old gentleman who presents to the emergency department after noticing that the tip of his left second toe was hanging off. He does not recall sustaining any injury and states that he has had what looked like a "hammertoe" for some time that he had been caring for with disinfectant spray. Patient states that he had a very small brown blister similar to what he has on the right foot. States this morning he suddenly realized the tip of his second toe was hanging off. He denies any purulent discharge and had minimal bleeding. Denies having any erythema or warmth to the foot or lower leg. He has chronic pallor to both feet. Denies having any pain associated with this. He has had amputation of the left great toe in the past. He overall feels well and is without any complaints. Denies having any recent fevers, chills or sweats. No headaches or dizziness. No nausea or vomiting. Denies any abdominal discomfort. No bowel changes or urinary symptoms. All other review of systems are negative. ED COURSE: White blood cell count was 10.5, hemoglobin 11.6, hematocrit 32.5, platelets 252, neutrophils 73%. Potassium 4.8, BUN 38, creatinine 1.0, GFR 40, glucose 109, LFTs normal except for AST which was slightly elevated at 30. Left foot x-ray showed no definite evidence of osteomyelitis. Ultrasound arterial Doppler of the left lower extremity was done showing no evidence of significant arterial disease in the left lower extremity. He had influenza and Covid testing done in the emergency department all of which were negative. A baseline chest x-ray was done showing no active intrathoracic disease. In the emergency department he received an amp of D50 due to glucose of 105. He was started on IV antibiotics with Zosyn and vancomycin for suspected diabetic foot infection. He also received 2 L of normal saline IV. Allergies/Adverse Reactions: Allergy/AdvReac Type Severity Reaction Status Date / Time No Known Allergies Allergy Verified 07/12/17 21:56 Home Medications: Medication Instructions Recorded Confirmed Type Carvedilol [Coreg] 6.25 mg PO BID #0 tab 09/07/14 07/12/17 Rx Lisinopril [Zestril] 5 mg PO BID #0 tab 09/07/14 07/12/17 Rx Simvastatin 40 mg PO HS #0 tablet 09/07/14 07/12/17 Rx Dapagliflozin Propanediol [Farxiga] 5 mg PO QAM 07/12/17 07/12/17 History Insulin Glargine,Hum.Rec.Anlog 100 unit SQ HS 07/12/17 07/12/17 History [Zach Miranda] metFORMIN HCl [Metformin HCl] 1,000 mg PO QAM-WM 07/12/17 07/12/17 History cefTRIAXone\\ROCEPHIN [Rocephin] 2 gm IVPB Q24HR vial 07/17/17 Rx metroNIDAZOLE [Flagyl] 500 mg PO TID #81 tab 07/17/17 Rx Past History: PAST MEDICAL HISTORY: 1. Hypertension 2. Type 2 diabetes mellitus 3. Hyperlipidemia 4. Diabetic neuropathy 5. Obesity PAST SURGICAL HISTORY: 1. Left great toe amputation SOCIAL HISTORY: Denies any history of alcohol consumption, tobacco use or drug use. He lives alone and is fully independent at baseline. FAMILY HISTORY: Noncontributory Hospitalist Exam Vitals: VS: Temp 98.1, HR 68, BP 110/62, RR 16, O2 sat 97% on room air. General Appearance: NAD, awake alert General - other findings: Patient appears unkempt Eye: PERRL, anicteric sclera ENT: normocephalic atraumatic, moist mucosa Neck: supple, no lymphadenopathy Heart: RRR, normal peripheral pulses Respiratory: CTAB, no wheezes, no rales, no ronchi, normal chest expansion Gastrointestinal: soft (obese), non-tender, normal bowel sounds, no guarding, no rigidity Extremities - other findings: trace bilateral lower leg edema, chronic venous stasis Skin - other findings: both feet cool to touch with pallor Neurological: cranial nerve grossly intact Neurological - other findings: chronic diabetic neuropathy affecting both feet Musculoskeletal - other findings: avulsed wound of tip of left 2nd toe, no active bleeding, dressing in place Psychiatric: normal affect, normal behavior, A&O x 3 Hospitalist Results Result Diagrams: 08/14/20 14:20 08/14/20 14:20 Lab results: Laboratory Last Values WBC 10.5 thou/uL (4.8-10.8) 08/14/20 14:20 RBC 3.82 mill/uL (4.70-6.10) L 08/14/20 14:20 Hgb 11.6 g/dL (14.0-18.0) L 08/14/20 14:20 Hct 33.5 % (42.0-52.0) L 08/14/20 14:20 MCV 87.7 fL (78.0-98.0) 08/14/20 14:20 MCH 30.5 pg (27.0-31.0) 08/14/20 14:20 MCHC 34.7 g/dL (32.0-36.0) 08/14/20 14:20 RDW 14.2 % (11.5-14.5) 08/14/20 14:20 Plt Count 252 thou/uL (130-400) 08/14/20 14:20 MPV 6.5 fL (7.4-10.4) L 08/14/20 14:20 Neutrophils % 83.0 % (42.0-75.0) H 08/14/20 14:20 Neutrophils % (Manual) Not Reportable 08/14/20 14:20 Lymphocytes % 10.4 % (21.0-51.0) L 08/14/20 14:20 Monocytes % 5.7 % (0.0-10.0) 08/14/20 14:20 Eosinophils % 0.6 % (0.0-10.0) 08/14/20 14:20 Basophils % 0.3 % (0.0-1.0) 08/14/20 14:20 Neutrophils # 8.7 thou/uL (1.40-6.50) H 08/14/20 14:20 Lymphocytes # 1.1 thou/uL (1.20-3.40) L 08/14/20 14:20 Monocytes # 0.6 thou/uL (0.11-0.59) H 08/14/20 14:20 Eosinophils # 0.1 thou/uL (0.0-0.7) 08/14/20 14:20 Basophils # 0.0 thou/uL (0.0-0.2) 08/14/20 14:20 Sodium 140 mmol/L (136-145) 08/14/20 14:20 Potassium 4.8 mmol/L (3.5-5.1) 08/14/20 14:20 Chloride 105 mmol/L (98-107) 08/14/20 14:20 Carbon Dioxide 24 mmol/L (22-29) 08/14/20 14:20 Anion Gap 16 mmol/L (10-20) 08/14/20 14:20 BUN 38 mg/dL (8.4-25.7) H 08/14/20 14:20 Creatinine 1.80 mg/dL (0.7-1.3) H 08/14/20 14:20 Estimated GFR (MDRD) 40 08/14/20 14:20 Glucose 109 mg/dL (70-105) H 08/14/20 14:20 POC Glucose 117 mg/dL (70-100) H 08/14/20 14:08 Calcium 10.0 mg/dL (7.8-10.44) 08/14/20 14:20 Total Bilirubin 0.5 mg/dL (0.2-1.2) 08/14/20 14:20 AST 38 U/L (5-34) H 08/14/20 14:20 ALT 25 U/L (8-55) 08/14/20 14:20 Alkaline Phosphatase 69 U/L (40-110) 08/14/20 14:20 Serum Total Protein 7.4 g/dL (6.0-8.3) 08/14/20 14:20 Albumin 4.4 g/dL (3.5-5.0) 08/14/20 14:20 Globulin 3.0 g/dL (2.4-3.5) 08/14/20 14:20 Albumin/Globulin Ratio 1.5 g/dL (1.2-2.2) 08/14/20 14:20 Influenza A RNA INAAT Not Detected (NotDetected) 08/14/20 17:20 Influenza B RNA INAAT Not Detected (NotDetected) 08/14/20 17:20 SARS-CoV-2 Rap RNA(RT-PCR) Not Detected (NotDetected) 08/14/20 17:20 Other Status: report reviewed by me (left foot xray) Hospitalist H&P A/P (1) Avulsion of skin of toe Code(s): S91.109A - UNSP OPEN WOUND OF UNSP TOE(S) W/O DAMAGE TO NAIL, INIT Status: Acute Assessment and Plan: Patient given dose of IV antibiotics (Vanc/Zosyn) Normal white count and afebrile, will let day team decide further antibiotics No evidence of cellulitis at present, foot xray unremarkable Consult placed for surgical team (Dr. Yuan) Keep NPO after midnight Wound care consulted (2) CRISTHIAN (acute kidney injury) Code(s): N17.9 - ACUTE KIDNEY FAILURE, UNSPECIFIED Status: Acute Assessment and Plan: Given 2 L NS IV in the ED Continue IV fluids at 55mLs/hr NS Monitor renal function Avoid nephrotoxic meds (3) Diabetic neuropathy Code(s): E11.40 - TYPE 2 DIABETES MELLITUS WITH DIABETIC NEUROPATHY, UNSP Status: Chronic (4) Type II diabetes mellitus Status: Chronic Assessment and Plan: Insulin sliding scale initiated Monitor glucose, accu-cheks ACHS (5) HTN (hypertension) Code(s): I10 - ESSENTIAL (PRIMARY) HYPERTENSION Status: Chronic Assessment and Plan: Monitor BP For now BP on low side, would hold antihypertensives unless BP starts to climb (6) Dyslipidemia Code(s): E78.5 - HYPERLIPIDEMIA, UNSPECIFIED Status: Chronic Assessment and Plan: Resume statin once dose verified Plan: GI Prophylaxis with Famotidine DVT Prophylaxis: hold for now, possible surgical procedure in AM If prolonged stay consider heparin, in light of renal status CODE STATUS FULL Case discussed with attending who agrees with plan as above.
[2020-08-14] MEDS ORDERED: Sodium Chloride 0.9% 1,000 ML IV SCH (21:00)
[2020-08-15 06:22] LABS: #Eosinphils 0.2 thou/uL (0.0-0.7); #Lymphocytes 2.1 thou/uL (1.20-3.40); #Monocytes 0.9 thou/uL (0.11-0.59); #Neutrophils 5.8 thou/uL (1.40-6.50); %Basophils 0.2 % (0.0-1.0); %Lymphocytes 23.3 % (21.0-51.0); %Monocytes 9.7 % (0.0-10.0); %Neutrophils 64.8 % (42.0-75.0); Mean Corpuscular Hemoglobin 30.1 pg (27.0-31.0); Mean Corpuscular Volume 88.6 fL (78.0-98.0); Mean Platelet Volume 6.3 fL (7.4-10.4); Platelet Count 217 thou/uL (130-400); RBC Distribution Width 14.2 % (11.5-14.5); Red Blood Cell (RBC) Count 3.33 mill/uL (4.70-6.10)
[2020-08-15] MEDS: Dextrose 5% in Water 1,000 ML IV PRN ×2 (06:32→20:36)
[2020-08-15 06:42] LABS: ALT (SGPT) 22 U/L (8-55); AST (SGOT) 37 U/L (5-34); Albumin 3.9 g/dL (3.5-5.0); Alkaline Phosphatase 56 U/L (40-110); Anion Gap 13 mmol/L (10-20); BUN (Urea Nitrogen) 36 mg/dL (8.4-25.7); Bilirubin, Total 0.4 mg/dL (0.2-1.2); Calc. Creatinine Clearance 86 mL/min (70-130); Calcium 9.2 mg/dL (7.8-10.44); Carbon Dioxide 24 mmol/L (22-29); Chloride 108 mmol/L (98-107); Globulin 2.6 g/dL (2.4-3.5); Potassium 3.9 mmol/L (3.5-5.1); Protein, Total 6.5 g/dL (6.0-8.3); Sodium 141 mmol/L (136-145)
[2020-08-15 06:47] LABS: Glucose 48 mg/dL (70-105)
[2020-08-15] MEDS: Dextrose 5 % And 0.9 % NaCl 1,000 ML IV SCH (07:50)
[2020-08-15] MEDS ORDERED: FLU VACC QS2020-21(6MOS UP)/PF 60 MCG/0.5 ML SYRINGE IM ONE (09:00)
[2020-08-15] MEDS: Famotidine/PF 20 mg/2ml Vial SLOW IVP SCH (09:12)
[2020-08-15] MEDS ORDERED: hydrALAZINE 20 MG/ML VIAL SLOW IVP PRN (09:41)
[2020-08-15] MEDS: Cefepime 1 GM in Sodium Chloride 0.9% 100 ML IVPB SCH ×2 (13:00→23:52)
--- NOTE | 2020-08-15 16:41 | CON ---
DATE OF CONSULTATION: 08/15/2020 CHIEF COMPLAINT: Left 2nd toe infection. HISTORY OF PRESENT ILLNESS: The patient is a 55-year-old obese, diabetic white male, well known to myself from prior surgery. In 2015, I performed a left great toe amputation for severe infection with osteomyelitis. In 2018, I drained a left foot infection, which required no other amputation or surgery. He healed quite nicely from both of these. He presents at this time noting that he had "water blisters" on both of his fee with some degree of infection recently. He is not determining time course of events. He noted recently that the tip of his left 2nd toe was "coming off," which led him to present to the hospital. He was admitted, started on IV antibiotics, and the wound was dressed. PAST MEDICAL HISTORY: 1. Hypertension. 2. Diabetes mellitus. 3. Dyslipidemia. 4. Obesity. 5. Diabetic neuropathy. PAST SURGICAL HISTORY: Left great toe amputation. ALLERGIES: NO KNOWN DRUG ALLERGIES. CURRENT MEDICATIONS: 1. Carvedilol. 2. Lisinopril. 3. Simvastatin. 4. Farxiga. 5. Insulin. 6. Metformin. 7. He has been started on IV antibiotics as well. PERSONAL AND SOCIAL HISTORY: He is single, has never been , has no children. He lives by himself in [place]. He does not work significantly, but tells me he does work when he can find it. He is a simple man, but is completely alert and oriented and conversant. REVIEW OF SYSTEMS: Otherwise unremarkable. FAMILY HISTORY: Noncontributory. PHYSICAL EXAMINATION: VITAL SIGNS: His temperature currently is 98.0, pulse 76, and blood pressure 143/81. LUNGS: Clear to auscultation. CARDIAC: Regular rate and rhythm. ABDOMEN: Obese, but soft. EXTREMITIES: He has a dressing on his left foot that I removed, revealing a well-healed great toe amputation site. The skin and nail from the tip of his 2nd toe had completely come off and this was easily removed, revealing underlying raw appearing tissue. The bone of the distal phalanx is protruding from the skin. He also has an eschar on the dorsum of the 2nd toe, that would likely be full-thickness, this was removed. He has evidence of venous insufficiency bilaterally as well. LABORATORY DATA: His CBC reveals white blood cell count of 9 with hemoglobin of 10 and platelet count of 217. Differential is within normal limits. Chemistry profile reveals essentially normal electrolytes. His BUN and creatinine are both elevated at 36 and 1.9. His creatinine has been elevated at about this level over the past 7 or 8 months. ASSESSMENT: The patient with a left 2nd toe ulcer/wound, that does not have the potential to heal with bone protruding. He will require amputation of this toe. If there is no infection at the base of the toe, then I would hope to be able to perform amputation with closure of the skin rather than leaving it open. Either way, I would plan on proceeding with a 2nd toe amputation tomorrow. I have discussed the operation in detail with the patient as well as potential risks. He understands and agrees to proceed. Job ID: [id number]
--- NOTE | 2020-08-15 17:56 | PDOC.HOSPP ---
- Subjective Encounter Date: 08/15/20 Encounter Time: 13:00 Subjective: Patient seen and examined for diabetic foot infection. Denies any fever or chills. Pain controlled. No nausea or vomiting reported. - Objective Vital Signs & Weight: Vital Signs (12 hours) Temp Pulse Resp BP Pulse Ox 08/15/20 07:47 98.0 F 76 20 143/81 H 97 Weight Admit Weight 300 lb 4.32 oz Weight 300 lb 4.313 oz I&O: 08/14/20 08/15/20 08/16/20 06:59 06:59 06:59 Intake Total 630 300 Output Total 500 Balance 130 300 Result Diagrams: 08/15/20 06:10 08/15/20 06:10 Additional Labs: Accuchecks 08/15/20 08/15/20 11:21 06:33 POC Glucose 94 121 H Abnormal Lab Results - Last 48 hrs 08/14/20 14:20: BUN 38 H, Creatinine 1.80 H, AST 38 H 08/14/20 14:20: RBC 3.82 L, Hgb 11.6 L, Hct 33.5 L, MPV 6.5 L, Neutrophils % 83.0 H, Lymphocytes % 10.4 L, Neutrophils # 8.7 H, Lymphocytes # 1.1 L, Monocytes # 0.6 H 08/15/20 06:10: Chloride 108 H, BUN 36 H, Creatinine 1.92 H, AST 37 H 08/15/20 06:10: RBC 3.33 L, Hgb 10.0 L, Hct 29.5 L, MPV 6.3 L, Monocytes # 0.9 H Microbiology - Entire Visit 08/14/20 14:20 Venous blood - Left Arm Blood Culture - Preliminary Specimen has been received and culture in progress. No Growth to date. 08/14/20 14:34 Venous blood - Right Arm Blood Culture - Preliminary Specimen has been received and culture in progress. No Growth to date. Radiology Reviewed by me: Yes (Chest x-rayno new infiltrate, foot x-rayno osteomyelitis) Hospitalist ROS - Review of Systems Cardiovascular: denies: chest pain, palpitations, orthopnea, paroxysmal noc. dyspnea, edema, light headedness, other Gastrointestinal: denies: nausea, vomiting, abdominal pain, diarrhea, constipation, melena, hematochezia, other - Medication Medications: Active Medications Generic Name Dose Route Start Last Admin Trade Name Freq PRN Reason Stop Dose Admin Dextrose/Water 25 gm 08/14/20 19:18 08/15/20 06:16 Dextrose 50% Abboject 50 Ml Syringe SLOW IVP 25 gm PRN PRN Administration Hypoglycemia Famotidine 20 mg 08/15/20 09:00 08/15/20 09:12 Famotidine/Pf 20 Mg/2ml Vial SLOW IVP 20 mg DAILY BETO Administration Dextrose/Water 1,000 mls @ 0 mls/hr 08/14/20 19:18 08/15/20 06:32 D5w IV 1,000 mls .Q0M PRN Administration Hypoglycemia As Directed Dextrose/Sodium Chloride 1,000 mls @ 55 mls/hr 08/15/20 07:45 08/15/20 07:50 D5 0.9% Ns IV 1,000 mls .[id number] BETO Administration Cefepime HCl 1 gm/ Sodium 100 mls @ 200 mls/hr 08/15/20 11:00 08/15/20 13:00 Chloride IVPB 100 mls 1100,2300 BETO Administration Hospitalist Exam Vitals: Vital Signs (12 hours) Temp Pulse Resp BP Pulse Ox 08/15/20 07:47 98.0 F 76 20 143/81 H 97 Weight Admit Weight 300 lb 4.32 oz Weight 300 lb 4.313 oz General Appearance: awake alert Neck: supple, no JVD Heart: RRR, no gallops Respiratory: no wheezes, no ronchi Gastrointestinal: soft, non-distended Extremities: no cyanosis Neurological: no new deficit Hosp A/P (1) Diabetic foot infection Code(s): E11.69 - TYPE 2 DIABETES MELLITUS WITH OTHER SPECIFIED COMPLICATION; L08.9 - LOCAL INFECTION OF THE SKIN AND SUBCUTANEOUS TISSUE, UNSP Status: Acute (2) HTN (hypertension) Code(s): I10 - ESSENTIAL (PRIMARY) HYPERTENSION Status: Chronic (3) CRISTHIAN (acute kidney injury) Code(s): N17.9 - ACUTE KIDNEY FAILURE, UNSPECIFIED Status: Acute (4) Type II diabetes mellitus Status: Chronic Qualifiers: Chronic kidney disease stage: stage 3 (moderate) (5) Obesity (BMI 30-39.9) Code(s): E66.9 - OBESITY, UNSPECIFIED Status: Chronic - Plan DVT proph w/SCDs Diabetic foot infection with poor potential of wound healing Continue IV vancomycin. Await surgical input. Continue n.p.o. status. Add cefepime. Consult wound care. Monitor vancomycin level. A.m. labs Diabetes mellitus type 2 with diabetic neuropathy/hypoglycemia Continue IV fluids with dextrose due to n.p.o. status. Glipizide and Metformin on hold CRISTHIAN on CKD stage III Continue gentle hydration. Avoid nephrotoxic agents. Metformin on hold. Hold lisinopril and HCTZ Dyslipidemia Continue statins/Vascepa Anxiety Continue Prozac Hypertension Lisinopril and diuretics on hold due to CRISTHIAN. Restart isosorbide mononitrate. Add as needed antihypertensives.
[2020-08-15] MEDS ORDERED: hydrALAZINE 25 MG TAB PO PRN (17:58)
[2020-08-15] MEDS ORDERED: Vancomycin 1 GM in Premix Bag 1 BAG IVPB SCH (18:00)
[2020-08-15] MEDS: Rosuvastatin 20 MG TAB PO SCH (20:36)
[2020-08-16] MEDS: VANCOMYCIN 1.25 GM/250 ML BAG 1.25 GM in Premix Bag 1 BAG IVPB SCH ×2 (02:00→14:52)
[2020-08-16] MEDS: Dextrose 5 % And 0.9 % NaCl 1,000 ML IV SCH ×2 (05:00→20:30)
[2020-08-16 06:09] LABS: #Eosinphils 0.3 thou/uL (0.0-0.7); #Lymphocytes 1.1 thou/uL (1.20-3.40); #Monocytes 0.5 thou/uL (0.11-0.59); #Neutrophils 3.2 thou/uL (1.40-6.50); %Basophils 0.8 % (0.0-1.0); %Eosinophils 4.9 % (0.0-10.0); %Neutrophils 62.3 % (42.0-75.0); Mean Corpuscular HGB CONC 33.5 g/dL (32.0-36.0); Mean Corpuscular Hemoglobin 29.5 pg (27.0-31.0); Mean Corpuscular Volume 88.1 fL (78.0-98.0); Mean Platelet Volume 6.5 fL (7.4-10.4); Platelet Count 192 thou/uL (130-400); RBC Distribution Width 14.1 % (11.5-14.5); Red Blood Cell (RBC) Count 3.05 mill/uL (4.70-6.10); White Blood Cell (WBC) Count 5.1 thou/uL (4.8-10.8)
[2020-08-16 06:29] LABS: Anion Gap 11 mmol/L (10-20); BUN (Urea Nitrogen) 28 mg/dL (8.4-25.7); Calc. Creatinine Clearance 96 mL/min (70-130); Calcium 8.7 mg/dL (7.8-10.44); Carbon Dioxide 25 mmol/L (22-29); Chloride 109 mmol/L (98-107); Glucose 74 mg/dL (70-105); Magnesium 1.8 mg/dL (1.6-2.6); Phosphorus 3.8 mg/dL (2.3-4.7); Potassium 4.1 mmol/L (3.5-5.1); Sodium 141 mmol/L (136-145)
[2020-08-16] MEDS ORDERED: XYLOCAINE 2%-EPI 1:100,000 20 ML VIAL ONE (06:41)
[2020-08-16] MEDS ORDERED: Bupivacaine 0.25% HCL 30 ML VIAL ONE (06:41)
[2020-08-16] MEDS ORDERED: Famotidine/PF 20 mg/2ml Vial ONE (08:00)
[2020-08-16] MEDS ORDERED: Fentanyl 100 MCG/2 ML VIAL ONE (08:00)
[2020-08-16] MEDS ORDERED: Promethazine HCl 25 MG/ML VIAL SLOW IVP PRN (09:19)
[2020-08-16] MEDS ORDERED: Promethazine HCl 25 MG/ML VIAL IM PRN (09:19)
[2020-08-16] MEDS ORDERED: Ondansetron HCl/PF 4 MG/2 ML Vial IVP PRN (09:19)
--- NOTE | 2020-08-16 10:19 | OP ---
DATE OF PROCEDURE: 08/16/2020 PREOPERATIVE DIAGNOSIS: Left 2nd toe ulcer with exposed bone. POSTOPERATIVE DIAGNOSIS: Left 2nd toe ulcer with exposed bone. PROCEDURE PERFORMED: Left 2nd toe amputation with primary closure. ANESTHESIA: General pharyngeal mask airway. INDICATIONS: The patient is a 55-year-old diabetic white male. He presented with an ulcer on his distal left 2nd toe. There is exposed bone at the distal aspect of this. There is also an eschar overlying the proximal interphalangeal joint that appears to be full-thickness. I have recommended left toe amputation as I do not believe this will ever heal. DESCRIPTION OF PROCEDURE: Informed consent was obtained. The patient was taken to the operating room, where general anesthesia was obtained with the patient in supine position. Left foot was prepped with Betadine and draped in sterile fashion. Local anesthetic was infiltrated proximally using 0.25% Marcaine with epinephrine. An elliptical incision was created around the base of the left 2nd toe. Dissection was carried through skin and subcutaneous tissue down to the proximal phalanx. This was divided with bone julissa. The bone was debrided proximally using rongeurs. At the point, there was adequate soft tissue to cover the bone, closure was begun. There was essentially no bleeding at all during the course of the procedure. Tendons were distracted and divided. The wound was closed in layers with a running suture of 3-0 Vicryl followed by interrupted sutures of 3-0 Prolene. Dressing was placed externally with Xeroform gauze, fluffed gauze, and Kerlix roll. There were no complications. The patient tolerated the procedure well and was taken to recovery in stable condition. Job ID: [id number]
[2020-08-16] MEDS: Famotidine/PF 20 mg/2ml Vial SLOW IVP SCH ×2 (10:24→10:38)
[2020-08-16] MEDS: FLUoxetine HCl 20 MG CAP PO SCH ×2 (10:24→10:38)
[2020-08-16] MEDS: Cefepime 1 GM in Sodium Chloride 0.9% 100 ML IVPB SCH ×2 (10:37→22:53)
[2020-08-16] MEDS: Dextrose 5% in Water 1,000 ML IV PRN (10:39)
[2020-08-16] MEDS: HumaLOG 300 UNITS/3 ML VIAL SC PRN (12:56)
[2020-08-16] MEDS ORDERED: Lidocaine 1% PF 5 ML VIAL ONE (15:56)
[2020-08-16] MEDS ORDERED: PROPOFOL 200 MG/20 ML VIAL ONE (15:56)
[2020-08-16] MEDS ORDERED: Metoclopramide HCl 10 MG/2 ML VIAL ONE (15:56)
[2020-08-16] MEDS ORDERED: PHENYLEPHRINE-NS 100 MCG/ML 10 ML SYRINGE ONE (15:56)
[2020-08-16] MEDS ORDERED: Ondansetron PF 4 MG/2 ML Vial ONE (15:56)
--- NOTE | 2020-08-16 18:46 | PDOC.HOSPP ---
- Subjective Encounter Date: 08/16/20 Encounter Time: 12:00 Subjective: Patient seen and examined for diabetic foot infection requiring left second toe amputation. Pain controlled. Denies any fever or chills. No nausea or vomiting - Objective Vital Signs & Weight: Vital Signs (12 hours) Temp Pulse Resp BP BP Pulse Ox 08/16/20 16:00 98.2 F 66 17 116/62 97 08/16/20 11:58 98.0 F 72 16 133/74 97 08/16/20 11:28 97.5 F L 76 19 136/74 95 Weight Admit Weight 300 lb 4.32 oz Weight 300 lb 4.313 oz I&O: 08/15/20 08/16/20 08/17/20 06:59 06:59 06:59 Intake Total 630 2200 550 Output Total 500 600 900 Balance 130 1600 -350 Result Diagrams: 08/16/20 05:33 08/16/20 05:33 Additional Labs: Accuchecks 08/16/20 08/16/20 08/16/20 16:07 12:03 04:27 POC Glucose 145 H 172 H 65 L 08/15/20 08/15/20 08/15/20 23:54 20:29 16:30 POC Glucose 148 H 224 H 58 L* Abnormal Lab Results - Last 48 hrs 08/15/20 06:10: Chloride 108 H, BUN 36 H, Creatinine 1.92 H, AST 37 H 08/15/20 06:10: RBC 3.33 L, Hgb 10.0 L, Hct 29.5 L, MPV 6.3 L, Monocytes # 0.9 H 08/16/20 05:33: Chloride 109 H, BUN 28 H, Creatinine 1.71 H 08/16/20 05:33: RBC 3.05 L, Hgb 9.0 L, Hct 26.8 L, MPV 6.5 L, Lymphocytes # 1.1 L Microbiology - Entire Visit 08/14/20 14:20 Venous blood - Left Arm Blood Culture - Preliminary NO GROWTH AT 48 HOURS 08/14/20 14:34 Venous blood - Right Arm Blood Culture - Preliminary NO GROWTH AT 48 HOURS Radiology Reviewed by me: Yes (X-ray of the footreviewed) Hospitalist ROS - Review of Systems Respiratory: denies: cough, dry, shortness of breath, hemoptysis, SOB with excertion, pleuritic pain, sputum, wheezing, other Cardiovascular: denies: chest pain, palpitations, orthopnea, paroxysmal noc. dyspnea, edema, light headedness, other - Medication Medications: Active Medications Generic Name Dose Route Start Last Admin Trade Name Freq PRN Reason Stop Dose Admin Dextrose/Water 25 gm 08/14/20 19:18 08/15/20 06:16 Dextrose 50% Abboject 50 Ml Syringe SLOW IVP 25 gm PRN PRN Administration Hypoglycemia Famotidine 20 mg 08/15/20 09:00 08/16/20 10:38 Famotidine/Pf 20 Mg/2ml Vial SLOW IVP 20 mg DAILY BETO Administration Fluoxetine HCl 40 mg 08/16/20 09:00 08/16/20 10:38 Fluoxetine Hcl 20 Mg Cap PO 40 mg DAILY BETO Administration Dextrose/Water 1,000 mls @ 0 mls/hr 08/14/20 19:18 08/16/20 10:39 D5w IV 1,000 mls .Q0M PRN Administration Hypoglycemia As Directed Dextrose/Sodium Chloride 1,000 mls @ 55 mls/hr 08/15/20 07:45 08/16/20 05:00 D5 0.9% Ns IV 1,000 mls .[id number] BETO Administration Cefepime HCl 1 gm/ Sodium 100 mls @ 200 mls/hr 08/15/20 11:00 08/16/20 10:37 Chloride IVPB 100 mls 1100,2300 BETO Administration Vancomycin HCl 1.25 gm/ Device 250 mls @ 166.667 mls/hr 08/16/20 03:00 08/16/20 14:52 IVPB 250 mls 0300,1500 BETO Administration Insulin Human Lispro 0 units 08/14/20 19:18 08/16/20 12:56 Humalog 300 Units/3 Ml Vial SC 2 unit .MILD SLIDING SCALE PRN Administration Mild Correctional Scale Insulin Human Lispro 0 units 08/14/20 19:18 08/15/20 20:35 Humalog 300 Units/3 Ml Vial SC 2 unit .BEDTIME SLIDING SC PRN Administration Bedtime Correctional Scale Isosorbide Mononitrate 60 mg 08/16/20 09:00 08/16/20 10:38 Isosorbide Mononitrate Er 60 Mg Tab PO 60 mg DAILY BETO Administration Rosuvastatin Calcium 40 mg 08/15/20 21:00 08/15/20 20:36 Rosuvastatin 20 Mg Tab PO 40 mg HS BETO Administration Hospitalist Exam Vitals: Vital Signs (12 hours) Temp Pulse Resp BP BP Pulse Ox 08/16/20 16:00 98.2 F 66 17 116/62 97 08/16/20 11:58 98.0 F 72 16 133/74 97 08/16/20 11:28 97.5 F L 76 19 136/74 95 Weight Admit Weight 300 lb 4.32 oz Weight 300 lb 4.313 oz General Appearance: awake alert Neck: supple, no JVD Heart: no gallops, no rubs Respiratory: no wheezes, no rales, no ronchi Gastrointestinal: soft, non-tender, non-distended Extremities: no cyanosis, no clubbing Extremities - other findings: Left foot dressing Neurological: no new deficit Hosp A/P (1) Diabetic foot infection Code(s): E11.69 - TYPE 2 DIABETES MELLITUS WITH OTHER SPECIFIED COMPLICATION; L08.9 - LOCAL INFECTION OF THE SKIN AND SUBCUTANEOUS TISSUE, UNSP Status: Acute (2) HTN (hypertension) Code(s): I10 - ESSENTIAL (PRIMARY) HYPERTENSION Status: Chronic (3) CRISTHIAN (acute kidney injury) Code(s): N17.9 - ACUTE KIDNEY FAILURE, UNSPECIFIED Status: Acute (4) Type II diabetes mellitus Status: Chronic Qualifiers: Chronic kidney disease stage: stage 3 (moderate) (5) Obesity (BMI 30-39.9) Code(s): E66.9 - OBESITY, UNSPECIFIED Status: Chronic - Plan Diabetic foot infection with poor potential of wound healing Surgical input appreciated. Patient underwent left second toe amputation with primary closure. Continue empiric antibiotics. DC IV fluids if tolerating p.o. Monitor vancomycin level. Blood cultures negative so far Diabetes mellitus type 2 with diabetic neuropathy/hypoglycemia Continue to monitor Accu-Cheks closely. Will start his home diabetic regimen based on his blood sugars in a.m. CRISTHIAN on CKD stage III Continue gentle hydration. Avoid nephrotoxic agents. Metformin on hold. Hold lisinopril and HCTZ Dyslipidemia Continue statins/Vascepa Anxiety Continue Prozac Hypertension Lisinopril and diuretics on hold due to CRISTHIAN. Continue isosorbide mononitrate..
[2020-08-16] MEDS ORDERED: Rosuvastatin 20 MG TAB ONE (20:24)
[2020-08-16] MEDS: Rosuvastatin 20 MG TAB PO SCH (20:26)
[2020-08-17 02:16] VITALS: BMI 39.8
[2020-08-17 02:21] LABS: #Basophils 0.1 thou/uL (0.0-0.2); #Eosinphils 0.4 thou/uL (0.0-0.7); #Lymphocytes 1.4 thou/uL (1.20-3.40); #Monocytes 0.7 thou/uL (0.11-0.59); #Neutrophils 4.4 thou/uL (1.40-6.50); %Basophils 0.8 % (0.0-1.0); %Eosinophils 5.5 % (0.0-10.0); %Lymphocytes 19.7 % (21.0-51.0); %Monocytes 10.7 % (0.0-10.0); %Neutrophils 63.3 % (42.0-75.0); Hemoglobin 9.2 g/dL (14.0-18.0); Mean Corpuscular HGB CONC 33.9 g/dL (32.0-36.0); Mean Corpuscular Hemoglobin 29.8 pg (27.0-31.0); Mean Corpuscular Volume 87.9 fL (78.0-98.0); Mean Platelet Volume 6.1 fL (7.4-10.4); Platelet Count 176 thou/uL (130-400); RBC Distribution Width 13.9 % (11.5-14.5); Red Blood Cell (RBC) Count 3.09 mill/uL (4.70-6.10); White Blood Cell (WBC) Count 6.9 thou/uL (4.8-10.8)
[2020-08-17 02:41] LABS: Vancomycin, Trough 14.7 ug/mL
[2020-08-17] MEDS: VANCOMYCIN 1.25 GM/250 ML BAG 1.25 GM in Premix Bag 1 BAG IVPB SCH (02:45)
[2020-08-17 02:48] LABS: Anion Gap 14 mmol/L (10-20); BUN (Urea Nitrogen) 25 mg/dL (8.4-25.7); Calc. Creatinine Clearance 94 mL/min (70-130); Calcium 8.9 mg/dL (7.8-10.44); Carbon Dioxide 23 mmol/L (22-29); Chloride 104 mmol/L (98-107); Glucose 102 mg/dL (70-105); Potassium 4.3 mmol/L (3.5-5.1); Sodium 137 mmol/L (136-145)
[2020-08-17] MEDS: FLUoxetine HCl 20 MG CAP PO SCH (08:04)
[2020-08-17] MEDS: HumaLOG 300 UNITS/3 ML VIAL SC PRN ×3 (09:04→17:03)
--- NOTE | 2020-08-17 10:44 | PRG ---
DATE OF SERVICE: 08/17/2020 SUBJECTIVE: Mr. Mann is postoperative day #1 from left second toe amputation. He denies discomfort. He has taken nothing for pain since surgery. There was no evidence of any infection associated with his amputation site. The toe was closed. There was limited vascularity, so I am not certain that this will heal, but, time will tell. OBJECTIVE: On examination, he is afebrile. Vital signs, within normal limits. His dressing is intact. ASSESSMENT AND PLAN: He is stable after surgery. Given the lack of actual infection, he does not require ongoing antibiotics. He will be evaluated by Physical Therapy and instructed in ambulation with heel weightbearing. Postop, shoe will be ordered as well. From my standpoint, he may be discharged at any time, including today. I would like to see him back in about 2 weeks for suture removal. Wound Care Team will be consulted to instruct the patient in daily dressing changes. It is certainly fine for him to bathe and get the incision wet and clean it with soap and water and then dress it daily. Job ID: [id number]
[2020-08-17] MEDS: Cefepime 1 GM in Sodium Chloride 0.9% 100 ML IVPB SCH (12:40)
--- NOTE | 2020-08-17 15:26 | PDOC.HOSPP ---
- Subjective Encounter Date: 08/17/20 Encounter Time: 12:30 Subjective: Patient seen and examined for diabetic foot infection. Pain controlled. Denies any nausea, vomiting or fever. - Objective Vital Signs & Weight: Vital Signs (12 hours) Temp Pulse Resp BP BP Pulse Ox 08/17/20 11:57 98.1 F 71 16 167/88 H 97 08/17/20 08:00 97.8 F 72 19 162/78 H 97 08/17/20 04:00 98.1 F 69 18 130/84 98 Weight Admit Weight 300 lb 4.32 oz Weight 300 lb 4 oz I&O: 08/16/20 08/17/20 08/18/20 06:59 06:59 06:59 Intake Total 2200 786 Output Total 600 2000 Balance 1600 -1214 Result Diagrams: 08/17/20 02:04 08/17/20 02:04 Additional Labs: Accuchecks 08/17/20 08/17/20 08/17/20 11:58 08:44 06:08 POC Glucose 193 H 212 H 155 H 08/17/20 08/16/20 08/16/20 00:57 21:05 16:07 POC Glucose 91 122 H 145 H Abnormal Lab Results - Last 48 hrs 08/16/20 05:33: Chloride 109 H, BUN 28 H, Creatinine 1.71 H 08/16/20 05:33: RBC 3.05 L, Hgb 9.0 L, Hct 26.8 L, MPV 6.5 L, Lymphocytes # 1.1 L 08/17/20 02:04: Creatinine 1.76 H 08/17/20 02:04: RBC 3.09 L, Hgb 9.2 L, Hct 27.1 L, MPV 6.1 L, Lymphocytes % 19.7 L, Monocytes % 10.7 H, Monocytes # 0.7 H Microbiology - Entire Visit 08/14/20 14:20 Venous blood - Left Arm Blood Culture - Preliminary NO GROWTH AT 48 HOURS 08/14/20 14:34 Venous blood - Right Arm Blood Culture - Preliminary NO GROWTH AT 48 HOURS Radiology Reviewed by me: Yes (Chest x-rayno infiltrate) Hospitalist ROS - Review of Systems Respiratory: denies: cough, dry, shortness of breath, hemoptysis, SOB with excertion, pleuritic pain, sputum, wheezing, other Cardiovascular: denies: chest pain, palpitations, orthopnea, paroxysmal noc. dyspnea, edema, light headedness, other - Medication Medications: Active Medications Generic Name Dose Route Start Last Admin Trade Name Waqarq PRN Reason Stop Dose Admin Dextrose/Water 25 gm 08/14/20 19:18 08/15/20 06:16 Dextrose 50% Abboject 50 Ml Syringe SLOW IVP 25 gm PRN PRN Administration Hypoglycemia Fluoxetine HCl 40 mg 08/16/20 09:00 08/17/20 08:04 Fluoxetine Hcl 20 Mg Cap PO 40 mg DAILY BETO Administration Dextrose/Water 1,000 mls @ 0 mls/hr 08/14/20 19:18 08/16/20 10:39 D5w IV 1,000 mls .Q0M PRN Administration Hypoglycemia As Directed Insulin Human Lispro 0 units 08/14/20 19:18 08/17/20 12:37 Humalog 300 Units/3 Ml Vial SC 2 unit .MILD SLIDING SCALE PRN Administration Mild Correctional Scale Insulin Human Lispro 0 units 08/14/20 19:18 08/15/20 20:35 Humalog 300 Units/3 Ml Vial SC 2 unit .BEDTIME SLIDING SC PRN Administration Bedtime Correctional Scale Isosorbide Mononitrate 60 mg 08/16/20 09:00 08/17/20 08:04 Isosorbide Mononitrate Er 60 Mg Tab PO 60 mg DAILY BETO Administration Rosuvastatin Calcium 40 mg 08/15/20 21:00 08/16/20 20:26 Rosuvastatin 20 Mg Tab PO 40 mg HS BETO Administration Hospitalist Exam Vitals: Vital Signs (12 hours) Temp Pulse Resp BP BP Pulse Ox 08/17/20 11:57 98.1 F 71 16 167/88 H 97 08/17/20 08:00 97.8 F 72 19 162/78 H 97 08/17/20 04:00 98.1 F 69 18 130/84 98 Weight Admit Weight 300 lb 4.32 oz Weight 300 lb 4 oz General Appearance: awake alert Neck: supple, no JVD Heart: RRR, no gallops Respiratory: no wheezes, no ronchi Gastrointestinal: soft, normal bowel sounds, no guarding, no rigidity Extremities: no cyanosis Extremities - other findings: Left foot dressing Neurological: no new deficit Psychiatric: A&O x 3 Hosp A/P (1) Diabetic foot infection Code(s): E11.69 - TYPE 2 DIABETES MELLITUS WITH OTHER SPECIFIED COMPLICATION; L0 8.9 - LOCAL INFECTION OF THE SKIN AND SUBCUTANEOUS TISSUE, UNSP Status: Acute (2) HTN (hypertension) Code(s): I10 - ESSENTIAL (PRIMARY) HYPERTENSION Status: Chronic (3) CRISTHIAN (acute kidney injury) Code(s): N17.9 - ACUTE KIDNEY FAILURE, UNSPECIFIED Status: Acute (4) Type II diabetes mellitus Status: Chronic Qualifiers: Chronic kidney disease stage: stage 3 (moderate) (5) Obesity (BMI 30-39.9) Code(s): E66.9 - OBESITY, UNSPECIFIED Status: Chronic - Plan Diabetic foot infection with poor potential of wound healing S/p left second toe amputation with primary closure. Will DC antibiotics per surgery recommendation. Continue wound care. Diabetes mellitus type 2 with diabetic neuropathy/hypoglycemia Continue to monitor Accu-Cheks closely. CRISTHIAN on CKD stage III Continue gentle hydration. Avoid nephrotoxic agents. Metformin on hold. Hold lisinopril and HCTZ Dyslipidemia Continue statins/Vascepa Anxiety Continue Prozac Hypertension Lisinopril and diuretics on hold due to CRISTHIAN. Continue isosorbide mononitrate. Discharge disposition DC later today if stable
--- NOTE | 2020-08-17 15:31 | PDOC.DS.DS ---
Provider Date of Admission: 08/15/20 17:54 Date of Discharge: 08/17/20 Admitting Provider: Jada Juárez MD Consultations: General Surgery Primary Care Physician: Sandro Baires MD Course Hospital Course: HPI: This is a 55-year-old gentleman who presents to the emergency department after noticing that the tip of his left second toe was hanging off. He does not recall sustaining any injury and states that he has had what looked like a "hammertoe" for some time that he had been caring for with disinfectant spray. Patient states that he had a very small brown blister similar to what he has on the right foot. States this morning he suddenly realized the tip of his second toe was hanging off. He denies any purulent discharge and had minimal bleeding. Denies having any erythema or warmth to the foot or lower leg. He has chronic pallor to both feet. Denies having any pain associated with this. He has had amputation of the left great toe in the past. He overall feels well and is without any complaints. Denies having any recent fevers, chills or sweats. No headaches or dizziness. No nausea or vomiting. Denies any abdominal discomfort. No bowel changes or urinary symptoms. All other review of systems are negative. ED COURSE: White blood cell count was 10.5, hemoglobin 11.6, hematocrit 32.5, platelets 252, neutrophils 73%. Potassium 4.8, BUN 38, creatinine 1.0, GFR 40, glucose 109, LFTs normal except for AST which was slightly elevated at 30. Left foot x-ray showed no definite evidence of osteomyelitis. Ultrasound arterial Doppler of the left lower extremity was done showing no evidence of significant arterial disease in the left lower extremity. He had influenza and Covid testing done in the emergency department all of which were negative. A baseline chest x-ray was done showing no active intrathoracic disease. In the emergency department he received an amp of D50 due to glucose of 105. He was started on IV antibiotics with Zosyn and vancomycin for suspected diabetic foot infection. He also received 2 L of normal saline IV. Hospital course: The patient was admitted to the hospital with a diagnosis of diabetic foot infection and was placed on IV antibiotics. He underwent left 2nd toe amputation with primary closure on 08/16 by general surgery. Postoperatively patient did well. He was educated on wound care. Antibiotics happened discontinued per surgery recommendation. Patient also had one episode of hypoglycemia on admission. He was educated on monitoring his blood sugar closely. His blood sugars remained stable during this hospital stay. Patient also had mild acute kidney injury with maximum creatinine of 1.92 that gradually improved. A repeat BMP check after 1 week [facility] advised to follow Resuscitation Status: 08/14/20 18:55 Resuscitation Status Routine Co-Sign Provider: Resuscitation Status: FULL: Full Resuscitation Lab Results: 08/17/20 02:04 08/17/20 02:04 Abnormal Lab Results - Last 48 hrs 08/16/20 05:33: Chloride 109 H, BUN 28 H, Creatinine 1.71 H 08/16/20 05:33: RBC 3.05 L, Hgb 9.0 L, Hct 26.8 L, MPV 6.5 L, Lymphocytes # 1.1 L 08/17/20 02:04: Creatinine 1.76 H 08/17/20 02:04: RBC 3.09 L, Hgb 9.2 L, Hct 27.1 L, MPV 6.1 L, Lymphocytes % 19.7 L, Monocytes % 10.7 H, Monocytes # 0.7 H Microbiology - Entire Visit 08/14/20 14:20 Venous blood - Left Arm Blood Culture - Preliminary NO GROWTH AT 48 HOURS 08/14/20 14:34 Venous blood - Right Arm Blood Culture - Preliminary NO GROWTH AT 48 HOURS Vitals: Vital Signs (12 hours) Temp Pulse Resp BP BP Pulse Ox 08/17/20 11:57 98.1 F 71 16 167/88 H 97 08/17/20 08:00 97.8 F 72 19 162/78 H 97 08/17/20 04:00 98.1 F 69 18 130/84 98 Weight Admit Weight 300 lb 4.32 oz Weight 300 lb 4 oz Physical Exam: The patient was seen and examined on the day of discharge. General Appearance: NAD Neck: supple, no JVD Respiratory: no wheezes, no ronchi Cardiovascular: RRR, no gallops Problem (1) Diabetic foot infection Code(s): E11.69 - TYPE 2 DIABETES MELLITUS WITH OTHER SPECIFIED COMPLICATION; L08.9 - LOCAL INFECTION OF THE SKIN AND SUBCUTANEOUS TISSUE, UNSP Status: Acute (2) HTN (hypertension) Code(s): I10 - ESSENTIAL (PRIMARY) HYPERTENSION Status: Chronic (3) CRISTHIAN (acute kidney injury) Code(s): N17.9 - ACUTE KIDNEY FAILURE, UNSPECIFIED Status: Acute (4) Type II diabetes mellitus Status: Chronic Qualifiers: Chronic kidney disease stage: stage 3 (moderate) (5) Obesity (BMI 30-39.9) Code(s): E66.9 - OBESITY, UNSPECIFIED Status: Chronic Plan Home Medications: Medication Instructions Recorded Confirmed Type Bisoprolol/Hydrochlorothiazide 1 tablet PO DAILY 08/15/20 08/15/20 History [Bisoprolol-Hctz 5-6.25 mg Tab] FLUoxetine HCl [Fluoxetine HCl] 40 mg PO DAILY 08/15/20 08/15/20 History Icosapent Ethyl [Vascepa] 2 gm PO BID- 08/15/20 08/15/20 History Isosorbide Mononitrate [Isosorbide 60 mg PO DAILY 08/15/20 08/15/20 History Mononitrate ER] Lisinopril/Hydrochlorothiazide 1 tablet PO DAILY 08/15/20 08/15/20 History [Lisinopril-Hctz 20-12.5 mg Tab] Pioglitazone HCl [Actos] 30 mg PO DAILY 08/15/20 08/15/20 History Rosuvastatin Calcium 40 mg PO DAILY 08/15/20 08/15/20 History Spironolactone [Aldactone] 25 mg PO DAILY 08/15/20 08/15/20 History glipiZIDE [glipiZIDE ER] 10 mg PO QAM- 08/15/20 08/15/20 History metFORMIN HCl [Glucophage] 1,000 mg PO BID- 08/15/20 08/15/20 History Allergies: No Known Allergies Allergy (Verified 08/15/20 00:04) Discharge Instructions:: Monitor sugars 2-3 times daily and maintain a log BMP after 1 week - PCP to arrange/follow Okay to bathe and get incision wer and clean it with soap and water then dress daily Referrals: Julian Pruitt MD [Active] - 10 Days Sandro Baires MD [Primary Care Provider] - 3 Days Disposition: HOME Quality CORE MEASURES:: N/A
[2020-08-17 16:57] VITALS: BP 180/100; TEMP 98.3
== END 2020-08-17 18:39 | disposition home or self-care (01) | DRG 617 ==
LOC: ERS 13:52 → INTOOBSV 18:25 → T4-B 18:25 → OBSVTOIN 08-15 17:54
PROVIDERS: ADMIT Internal Medicine; ATTEND Internal Medicine
PROC: 0Y6P0Z1 Detachment at Right 1st Toe, High, Open Approach (ICD-10-PCS; principal; 2020-08-16)
DX: E11.621 Type 2 diabetes mellitus with foot ulcer (principal); L03.116 Cellulitis of left lower limb; L97.525 Non-pressure chronic ulcer of other part of left foot with muscle involvement without evidence of necrosis; E11.628 Type 2 diabetes mellitus with other skin complications; N17.9 Acute kidney failure, unspecified; E78.5 Hyperlipidemia, unspecified; E11.40 Type 2 diabetes mellitus with diabetic neuropathy, unspecified; I12.9 Hypertensive chronic kidney disease with stage 1 through stage 4 chronic kidney disease, or unspecified chronic kidney disease; N18.30 Chronic kidney disease, stage 3 unspecified; E11.649 Type 2 diabetes mellitus with hypoglycemia without coma; F41.9 Anxiety disorder, unspecified; Z20.822 Contact with and (suspected) exposure to COVID-19; E11.22 Type 2 diabetes mellitus with diabetic chronic kidney disease; E66.9 Obesity, unspecified; Z68.39 Body mass index [BMI] 39.0-39.9, adult; Z89.412 Acquired absence of left great toe
CPT/HCPCS: 0240U; 36415; 36416; 71045; 80048; 80053; 80202; 83735; 84100; 85025; 87040; 88305; 88311; 93923; 96365; 96375; G0378; J0692; J1815; J2405; J2543; J2704; J2765; J3010; J3370; J3490; S0020; S0028

== ENCOUNTER 2024-06-22 21:43 | Inpatient (IN) | payer SELFPAY ==
[2024-06-22] MEDS ORDERED: Ondansetron PF 4 MG/2 ML Vial IVP PRN (23:31)
[2024-06-22] MEDS ORDERED: Glucagon 1 MG/ML KIT IM PRN (23:31)
[2024-06-22] MEDS ORDERED: Acetaminophen 325 MG TAB PO PRN (23:31)
[2024-06-22] MEDS ORDERED: Dextrose 50% Abboject 50 ML SYRINGE SLOW IVP PRN (23:31)
[2024-06-22] MEDS ORDERED: traMADol HCl 50 MG TAB PO PRN (23:31)
[2024-06-22] MEDS ORDERED: Dextrose 5% in Water 1,000 ML IV PRN (23:31)
[2024-06-23 01:19] LABS: Troponin I 0.036 ng/mL (< 0.028)
[2024-06-23] MEDS: Piperacillin/Tazobactam 2.25 GM in Sodium Chloride 0.9% 100 ML IVPB SCH (02:17)
[2024-06-23] MEDS: Piperacillin/Tazobactam 3.375 GM in Sodium Chloride 0.9% 100 ML IVPB SCH ×4 (02:41→23:19)
[2024-06-23] MEDS: Insulin Lispro 100 UNIT/ML 10 ML VIAL SC PRN ×2 (05:36→11:22)
[2024-06-23 06:26] LABS: #Basophils 0.04 10x3/uL (0.0-0.2); %Basophils 0.5 % (0.0-1.0); %Eosinophils 5.7 % (0.0-10.0); %Monocytes 11.3 % (0.0-10.0); Hematocrit 32.9 % (42.0-52.0); Hemoglobin 10.5 g/dL (14.0-18.0); Mean Corpuscular HGB CONC 31.9 g/dL (32.0-36.0); Mean Corpuscular Hemoglobin 28.2 pg (27.0-31.0); Mean Corpuscular Volume 88.4 fL (78.0-98.0); Mean Platelet Volume 8.4 fL (7.4-10.4); Platelet Count 227 10x3/uL (130-400); RBC Distribution Width 13.9 % (11.5-14.5); Red Blood Cell (RBC) Count 3.72 mill/uL (4.70-6.10)
[2024-06-23 06:42] LABS: Anion Gap 15 mmol/L (10-20); BUN (Urea Nitrogen) 64 mg/dL (8.4-25.7); Calc. Creatinine Clearance 46 mL/min (70-130); Calcium 9.9 mg/dL (7.8-10.44); Carbon Dioxide 23 mmol/L (22-29); Chloride 107 mmol/L (98-107); Estimated GFR 18; Glucose 178 mg/dL (70-105); Potassium 4.6 mmol/L (3.5-5.1); Sodium 140 mmol/L (136-145)
[2024-06-23 06:43] LABS: Hemoglobin A1c 7.1 % (4.0-6.0)
[2024-06-23 06:47] LABS: Troponin I 0.042 ng/mL (< 0.028)
[2024-06-23] MEDS ORDERED: Vancomycin 1 GM in Premix 1 BAG IVPB SCH (09:00)
[2024-06-23] MEDS: FLUoxetine HCl 20 MG CAP PO SCH (10:03)
[2024-06-23] MEDS: Pantoprazole 40 MG DR.TAB PO SCH (10:03)
[2024-06-23] MEDS: Icosapent Ethyl 1 GM CAPSULE PO SCH (10:03)
[2024-06-23] MEDS: Aspirin 81 mg Enteric Coated Tablet PO SCH (10:03)
[2024-06-23] MEDS: Isosorbide Mononitrate 60 MG ER.TAB PO SCH (10:03)
[2024-06-23] MEDS: Pioglitazone HCl 15 MG TAB PO SCH (10:03)
[2024-06-23] MEDS: Fenofibrate Nanocrystallized 145 MG TAB PO SCH (10:03)
[2024-06-23] MEDS: glipiZIDE XL 10 mg ER.TAB PO SCH (10:03)
[2024-06-23] MEDS: Bisoprolol Fumarate 5 MG TAB PO SCH (10:04)
[2024-06-23] MEDS: Spironolactone 25 MG TAB PO SCH (10:04)
[2024-06-23] MEDS: Heparin 5,000 UNITS/ML VIAL SC SCH (10:04)
[2024-06-23] MEDS ORDERED: Vancomycin Dose by Levels Sliding Scale (Wt > 99) FS SCH (12:45)
[2024-06-23] MEDS ORDERED: Vancomycin HCl 750 MG in Sodium Chloride 0.9% 250 ML 250 ML IVPB SCH (18:00)
[2024-06-23 20:08] LABS: Vancomycin, Trough 15.3 ug/mL
[2024-06-23] MEDS: Rosuvastatin 10 MG TAB PO SCH (20:37)
[2024-06-23] MEDS: Gabapentin 300 MG CAP PO SCH (20:37)
[2024-06-23] MEDS: Insulin Glargine 30 UNITS/0.3 ML VIAL SC SCH (20:38)
[2024-06-23] MEDS: Vancomycin 1 GM in Premix 1 BAG IVPB SCH (21:57)
[2024-06-24 04:49] LABS: Hematocrit 30.6 % (42.0-52.0); Hemoglobin 9.8 g/dL (14.0-18.0); Mean Corpuscular Hemoglobin 28.9 pg (27.0-31.0); Mean Corpuscular Volume 90.3 fL (78.0-98.0); Mean Platelet Volume 8.3 fL (7.4-10.4); Platelet Count 203 10x3/uL (130-400); RBC Distribution Width 13.9 % (11.5-14.5); Red Blood Cell (RBC) Count 3.39 mill/uL (4.70-6.10)
[2024-06-24 05:28] VITALS: BMI 49.4
[2024-06-24 05:44] LABS: Anion Gap 13 mmol/L (10-20); BUN (Urea Nitrogen) 55 mg/dL (8.4-25.7); Calc. Creatinine Clearance 49 mL/min (70-130); Calcium 9.4 mg/dL (7.8-10.44); Carbon Dioxide 26 mmol/L (22-29); Chloride 104 mmol/L (98-107); Estimated GFR 20; Glucose 145 mg/dL (70-105); Potassium 4.6 mmol/L (3.5-5.1); Sodium 138 mmol/L (136-145)
[2024-06-24] MEDS: Sodium Chloride 0.9% 1,000 ML IV SCH (10:50)
[2024-06-24] MEDS: Morphine 2 MG/ML VIAL SLOW IVP PRN (11:07)
[2024-06-24 17:58] LABS: Vancomycin, Random 18.1 ug/mL (See Comment)
[2024-06-24] MEDS: Cephalexin 250 MG CAP PO SCH (20:45)
[2024-06-25] MEDS: LevoFLOXacin 250 MG TAB PO SCH (05:45)
[2024-06-25 06:15] LABS: Anion Gap 13 mmol/L (10-20); BUN (Urea Nitrogen) 54 mg/dL (8.4-25.7); Calc. Creatinine Clearance 52 mL/min (70-130); Calcium 9.5 mg/dL (7.8-10.44); Carbon Dioxide 24 mmol/L (22-29); Chloride 108 mmol/L (98-107); Estimated GFR 21; Glucose 159 mg/dL (70-105); Potassium 4.9 mmol/L (3.5-5.1); Sodium 140 mmol/L (136-145)
[2024-06-25 06:16] LABS: Hematocrit 31.1 % (42.0-52.0); Hemoglobin 9.8 g/dL (14.0-18.0); Mean Corpuscular HGB CONC 31.5 g/dL (32.0-36.0); Mean Corpuscular Hemoglobin 28.4 pg (27.0-31.0); Mean Corpuscular Volume 90.1 fL (78.0-98.0); Mean Platelet Volume 8.6 fL (7.4-10.4); Platelet Count 212 10x3/uL (130-400); RBC Distribution Width 13.8 % (11.5-14.5); Red Blood Cell (RBC) Count 3.45 mill/uL (4.70-6.10)
[2024-06-25] MEDS: NIFEdipine XL 60 MG ER.TAB PO SCH (09:02)
[2024-06-25] MEDS: Insulin Lispro 100 UNIT/ML 10 ML VIAL SC PRN (20:32)
[2024-06-26 04:56] LABS: Anion Gap 13 mmol/L (10-20); BUN (Urea Nitrogen) 45 mg/dL (8.4-25.7); Calc. Creatinine Clearance 59 mL/min (70-130); Calcium 9.8 mg/dL (7.8-10.44); Carbon Dioxide 24 mmol/L (22-29); Chloride 108 mmol/L (98-107); Estimated GFR 25; Glucose 154 mg/dL (70-105); Potassium 4.5 mmol/L (3.5-5.1); Sodium 140 mmol/L (136-145)
[2024-06-27 08:13] LABS: Anion Gap 14 mmol/L (10-20); BUN (Urea Nitrogen) 39 mg/dL (8.4-25.7); Calc. Creatinine Clearance 57 mL/min (70-130); Calcium 9.6 mg/dL (7.8-10.44); Carbon Dioxide 22 mmol/L (22-29); Chloride 107 mmol/L (98-107); Estimated GFR 24; Glucose 118 mg/dL (70-105); Potassium 4.4 mmol/L (3.5-5.1); Sodium 139 mmol/L (136-145)
[2024-06-27] MEDS: Albumin 25% 25 GM (100 mL) BOT IVPB SCH (12:02)
[2024-06-27] MEDS: Lactated Ringer's 1,000 ML IV SCH (12:02)
[2024-06-28 05:16] LABS: Hematocrit 32.4 % (42.0-52.0); Hemoglobin 10.5 g/dL (14.0-18.0); Mean Corpuscular HGB CONC 32.4 g/dL (32.0-36.0); Mean Corpuscular Hemoglobin 28.5 pg (27.0-31.0); Mean Corpuscular Volume 87.8 fL (78.0-98.0); Mean Platelet Volume 8.3 fL (7.4-10.4); Platelet Count 222 10x3/uL (130-400); RBC Distribution Width 13.4 % (11.5-14.5); Red Blood Cell (RBC) Count 3.69 mill/uL (4.70-6.10)
[2024-06-28 05:40] LABS: Anion Gap 15 mmol/L (10-20); BUN (Urea Nitrogen) 39 mg/dL (8.4-25.7); Calc. Creatinine Clearance 52 mL/min (70-130); Calcium 10.4 mg/dL (7.8-10.44); Carbon Dioxide 24 mmol/L (22-29); Chloride 105 mmol/L (98-107); Estimated GFR 22; Glucose 86 mg/dL (70-105); Potassium 4.4 mmol/L (3.5-5.1); Sodium 140 mmol/L (136-145)
[2024-06-28 15:07] VITALS: BMI 48.4
[2024-06-29 09:04] LABS: Anion Gap 16 mmol/L (10-20); BUN (Urea Nitrogen) 42 mg/dL (8.4-25.7); Calc. Creatinine Clearance 51 mL/min (70-130); Calcium 9.8 mg/dL (7.8-10.44); Carbon Dioxide 22 mmol/L (22-29); Chloride 103 mmol/L (98-107); Estimated GFR 21; Glucose 180 mg/dL (70-105); Potassium 4.8 mmol/L (3.5-5.1); Sodium 136 mmol/L (136-145)
[2024-06-29] MEDS: Sodium Chloride 0.9% 1,000 ML IV SCH ×2 (10:47→11:37)
[2024-06-30 05:17] LABS: #Basophils 0.03 10x3/uL (0.0-0.2); %Basophils 0.5 % (0.0-1.0); %Eosinophils 6.4 % (0.0-10.0); %Monocytes 11.7 % (0.0-10.0); %Neutrophils 56.4 % (42.0-75.0); Hematocrit 30.6 % (42.0-52.0); Mean Corpuscular HGB CONC 32.7 g/dL (32.0-36.0); Mean Corpuscular Hemoglobin 28.7 pg (27.0-31.0); Mean Corpuscular Volume 87.7 fL (78.0-98.0); Mean Platelet Volume 8.1 fL (7.4-10.4); Platelet Count 177 10x3/uL (130-400); RBC Distribution Width 13.7 % (11.5-14.5); Red Blood Cell (RBC) Count 3.49 mill/uL (4.70-6.10)
[2024-06-30 05:46] LABS: Anion Gap 14 mmol/L (10-20); BUN (Urea Nitrogen) 42 mg/dL (8.4-25.7); Calc. Creatinine Clearance 59 mL/min (70-130); Calcium 9.5 mg/dL (7.8-10.44); Carbon Dioxide 22 mmol/L (22-29); Chloride 107 mmol/L (98-107); Estimated GFR 25; Glucose 100 mg/dL (70-105); Potassium 4.5 mmol/L (3.5-5.1); Sodium 138 mmol/L (136-145)
[2024-06-30] MEDS: Carvedilol 6.25 MG TAB PO SCH (09:47)
[2024-06-30] MEDS: hydrALAZINE 25 MG TAB PO SCH (09:52)
[2024-06-30 14:52] VITALS: BP 155/75
[2024-06-30] MEDS ORDERED: Carvedilol 6.25 MG TAB PO SCH (17:00)
[2024-06-30 18:11] VITALS: TEMP 97.8
== END 2024-06-30 16:00 | disposition home or self-care (01) | DRG 602 ==
LOC: 2NO 23:00 → MSONC 06-23 16:23
PROVIDERS: ADMIT Internal Medicine; ATTEND Internal Medicine
DX: L03.116 Cellulitis of left lower limb (principal); I21.A1 Myocardial infarction type 2; N18.4 Chronic kidney disease, stage 4 (severe); Z68.42 Body mass index [BMI] 45.0-49.9, adult; N17.9 Acute kidney failure, unspecified; D63.1 Anemia in chronic kidney disease; E11.22 Type 2 diabetes mellitus with diabetic chronic kidney disease; E78.5 Hyperlipidemia, unspecified; I12.9 Hypertensive chronic kidney disease with stage 1 through stage 4 chronic kidney disease, or unspecified chronic kidney disease; K21.9 Gastro-esophageal reflux disease without esophagitis; Z79.82 Long term (current) use of aspirin; Z79.899 Other long term (current) drug therapy; Z79.4 Long term (current) use of insulin; Z79.01 Long term (current) use of anticoagulants; G47.33 Obstructive sleep apnea (adult) (pediatric); E66.01 Morbid (severe) obesity due to excess calories; R33.9 Retention of urine, unspecified; I87.2 Venous insufficiency (chronic) (peripheral)
CPT/HCPCS: 36415; 36416; 76770; 80048; 80202; 82306; 82570; 83036; 83970; 84100; 84156; 84484; 85025; 85027; 97139; J1644; J1815; J2272; J2543; J3370; J7030; J7120; P9047

== ENCOUNTER 2025-01-28 14:29 | Inpatient (IN) | payer SELFPAY ==
[2025-01-28 16:51] VITALS: BMI 37.2
[2025-01-28] MEDS ORDERED: Vancomycin Dose by Levels Sliding Scale (Wt > 99) FS SCH (19:15)
[2025-01-28] MEDS: Vancomycin 1.5 GM / NS 500ML VIAL-2-BAG IVPB SCH (20:20)
[2025-01-28] MEDS: Insulin Glargine 30 UNITS/0.3 ML VIAL SC SCH (20:27)
[2025-01-28] MEDS: Famotidine 20 MG TAB PO SCH (20:27)
[2025-01-29 06:20] LABS: #Basophils 0.05 10x3/uL (0.0-0.2); #Eosinophils 0.45 10x3/uL (0.0-0.7); #Monocytes 0.64 10x3/uL (0.11-0.59); #Neutrophils 3.23 10x3/uL (1.40-6.50); %Basophils 0.9 % (0.0-1.0); %Eosinophils 8.3 % (0.0-10.0); %Lymphocytes 18.4 % (21.0-51.0); %Monocytes 11.9 % (0.0-10.0); %Neutrophils 59.9 % (42.0-75.0); Hematocrit 32.4 % (42.0-52.0); Hemoglobin 10.6 g/dL (14.0-18.0); Mean Corpuscular Hemoglobin 26.6 pg (27.0-31.0); Mean Corpuscular Volume 81.4 fL (78.0-98.0); Platelet Count 161 10x3/uL (130-400); Red Blood Cell (RBC) Count 3.98 mill/uL (4.70-6.10); White Blood Cell (WBC) Count 5.39 10x3/uL (4.8-10.8)
[2025-01-29 06:40] LABS: Anion Gap 13 mmol/L (10-20); BUN (Urea Nitrogen) 33 mg/dL (8.4-25.7); Calc. Creatinine Clearance 45 mL/min (70-130); Calcium 8.6 mg/dL (7.8-10.44); Carbon Dioxide 23 mmol/L (22-29); Chloride 108 mmol/L (98-107); Glucose 202 mg/dL (70-105); Potassium 3.7 mmol/L (3.5-5.1); Sodium 140 mmol/L (136-145)
[2025-01-29] MEDS ORDERED: Dextrose 50% Abboject 50 ML SYRINGE SLOW IVP PRN (09:25)
[2025-01-29] MEDS ORDERED: HumaLOG 300 UNITS/3 ML VIAL SC PRN (09:25)
[2025-01-29] MEDS ORDERED: Glucagon 1 MG/ML KIT IM PRN (09:25)
[2025-01-29] MEDS: Enoxaparin 30 MG (0.3 mL) SYRINGE SC SCH (09:40)
[2025-01-29 11:03] LABS: Vancomycin, Trough 23.1 ug/mL
[2025-01-29] MEDS: Rosuvastatin 20 MG TAB PO SCH (20:38)
[2025-01-29] MEDS: Acetaminophen 325 MG TAB PO PRN (20:38)
[2025-01-29] MEDS: Senokot S 8.6-50 MG TAB PO PRN (20:38)
[2025-01-30 07:21] LABS: #Basophils 0.03 10x3/uL (0.0-0.2); #Eosinophils 0.41 10x3/uL (0.0-0.7); #Monocytes 0.51 10x3/uL (0.11-0.59); #Neutrophils 2.87 10x3/uL (1.40-6.50); %Basophils 0.6 % (0.0-1.0); %Eosinophils 8.5 % (0.0-10.0); %Lymphocytes 21.0 % (21.0-51.0); %Monocytes 10.5 % (0.0-10.0); %Neutrophils 59.2 % (42.0-75.0); Hematocrit 30.2 % (42.0-52.0); Hemoglobin 10.1 g/dL (14.0-18.0); Mean Corpuscular Hemoglobin 27.2 pg (27.0-31.0); Mean Corpuscular Volume 81.2 fL (78.0-98.0); Platelet Count 163 10x3/uL (130-400); Red Blood Cell (RBC) Count 3.72 mill/uL (4.70-6.10); White Blood Cell (WBC) Count 4.85 10x3/uL (4.8-10.8)
[2025-01-30 07:38] LABS: Vancomycin, Random 23.4 ug/mL (See Comment)
[2025-01-30 07:39] LABS: Anion Gap 13 mmol/L (10-20); BUN (Urea Nitrogen) 24 mg/dL (8.4-25.7); Calc. Creatinine Clearance 59 mL/min (70-130); Calcium 8.7 mg/dL (7.8-10.44); Carbon Dioxide 24 mmol/L (22-29); Chloride 106 mmol/L (98-107); Glucose 139 mg/dL (70-105); Potassium 3.6 mmol/L (3.5-5.1); Sodium 139 mmol/L (136-145)
[2025-01-30] MEDS: Enoxaparin 40 MG (0.4 mL) SYRINGE SC SCH (09:20)
[2025-01-30] MEDS: Pantoprazole 40 MG DR.TAB PO SCH (09:20)
[2025-01-30] MEDS: Aspirin 81 mg Enteric Coated Tablet PO SCH (09:20)
[2025-01-30 12:39] VITALS: BMI 37.2
[2025-01-30] MEDS: Carvedilol 6.25 MG TAB PO SCH (20:26)
[2025-01-31 05:53] LABS: #Basophils Less than 0.03 10x3/uL (0.0-0.2); #Eosinophils 0.39 10x3/uL (0.0-0.7); #Monocytes 0.52 10x3/uL (0.11-0.59); #Neutrophils 2.90 10x3/uL (1.40-6.50); %Basophils 0.4 % (0.0-1.0); %Eosinophils 7.9 % (0.0-10.0); %Lymphocytes 21.8 % (21.0-51.0); %Monocytes 10.6 % (0.0-10.0); %Neutrophils 59.1 % (42.0-75.0); Hematocrit 30.7 % (42.0-52.0); Hemoglobin 10.4 g/dL (14.0-18.0); Mean Corpuscular Hemoglobin 26.7 pg (27.0-31.0); Mean Corpuscular Volume 78.9 fL (78.0-98.0); Platelet Count 169 10x3/uL (130-400); Red Blood Cell (RBC) Count 3.89 mill/uL (4.70-6.10); White Blood Cell (WBC) Count 4.91 10x3/uL (4.8-10.8)
[2025-01-31 06:07] LABS: Anion Gap 11 mmol/L (10-20); BUN (Urea Nitrogen) 19 mg/dL (8.4-25.7); Calc. Creatinine Clearance 64 mL/min (70-130); Calcium 9.0 mg/dL (7.8-10.44); Carbon Dioxide 23 mmol/L (22-29); Chloride 107 mmol/L (98-107); Glucose 66 mg/dL (70-105); Potassium 3.6 mmol/L (3.5-5.1); Sodium 137 mmol/L (136-145)
[2025-01-31] MEDS: Isosorbide Mononitrate 60 MG ER.TAB PO SCH (08:31)
[2025-01-31] MEDS: Insulin Glargine 30 UNITS/0.3 ML VIAL SC SCH (08:54)
[2025-01-31] MEDS: Carvedilol 6.25 MG TAB PO SCH (20:42)
[2025-01-31] MEDS ORDERED: Carvedilol 6.25 MG TAB PO SCH (21:00)
[2025-02-01 05:42] LABS: #Basophils 0.04 10x3/uL (0.0-0.2); #Eosinophils 0.39 10x3/uL (0.0-0.7); #Monocytes 0.66 10x3/uL (0.11-0.59); #Neutrophils 3.09 10x3/uL (1.40-6.50); %Basophils 0.7 % (0.0-1.0); %Eosinophils 7.2 % (0.0-10.0); %Lymphocytes 22.1 % (21.0-51.0); %Monocytes 12.2 % (0.0-10.0); %Neutrophils 57.4 % (42.0-75.0); Hematocrit 30.0 % (42.0-52.0); Hemoglobin 9.8 g/dL (14.0-18.0); Mean Corpuscular Hemoglobin 26.5 pg (27.0-31.0); Mean Corpuscular Volume 81.1 fL (78.0-98.0); Platelet Count 164 10x3/uL (130-400); Red Blood Cell (RBC) Count 3.70 mill/uL (4.70-6.10); White Blood Cell (WBC) Count 5.39 10x3/uL (4.8-10.8)
[2025-02-01 05:56] LABS: Anion Gap 11 mmol/L (10-20); BUN (Urea Nitrogen) 24 mg/dL (8.4-25.7); Calc. Creatinine Clearance 64 mL/min (70-130); Calcium 9.1 mg/dL (7.8-10.44); Carbon Dioxide 28 mmol/L (22-29); Chloride 103 mmol/L (98-107); Glucose 110 mg/dL (70-105); Potassium 3.9 mmol/L (3.5-5.1); Sodium 138 mmol/L (136-145); Vancomycin, Random 22.0 ug/mL (See Comment)
[2025-02-01] MEDS: Vancomycin 1 GM in Premix 1 BAG IVPB SCH (23:20)
[2025-02-02] MEDS: NIFEdipine XL 30 MG ER.TAB PO SCH (09:39)
[2025-02-03 05:40] LABS: #Basophils 0.04 10x3/uL (0.0-0.2); #Eosinophils 0.34 10x3/uL (0.0-0.7); #Monocytes 0.68 10x3/uL (0.11-0.59); #Neutrophils 3.84 10x3/uL (1.40-6.50); %Basophils 0.7 % (0.0-1.0); %Eosinophils 5.6 % (0.0-10.0); %Lymphocytes 18.8 % (21.0-51.0); %Monocytes 11.2 % (0.0-10.0); %Neutrophils 63.2 % (42.0-75.0); Hematocrit 32.4 % (42.0-52.0); Hemoglobin 10.4 g/dL (14.0-18.0); Mean Corpuscular Hemoglobin 26.1 pg (27.0-31.0); Mean Corpuscular Volume 81.4 fL (78.0-98.0); Platelet Count 186 10x3/uL (130-400); Red Blood Cell (RBC) Count 3.98 mill/uL (4.70-6.10); White Blood Cell (WBC) Count 6.07 10x3/uL (4.8-10.8)
[2025-02-03 06:09] LABS: Anion Gap 11 mmol/L (10-20); BUN (Urea Nitrogen) 26 mg/dL (8.4-25.7); Calc. Creatinine Clearance 66 mL/min (70-130); Calcium 9.1 mg/dL (7.8-10.44); Carbon Dioxide 29 mmol/L (22-29); Chloride 100 mmol/L (98-107); Glucose 140 mg/dL (70-105); Potassium 3.9 mmol/L (3.5-5.1); Sodium 136 mmol/L (136-145)
[2025-02-03 06:17] LABS: Vancomycin, Random 26.6 ug/mL (See Comment)
[2025-02-03] MEDS: NIFEdipine XL 30 MG ER.TAB PO SCH (09:28)
[2025-02-03 19:44] VITALS: BP 149/80; TEMP 98.5
== END 2025-02-03 20:35 | disposition home or self-care (01) | DRG 638 ==
LOC: T4-A 16:17
PROVIDERS: ADMIT Hospitalist; ATTEND Student in an Organized Health Care Education/Training Program
DX: E11.69 Type 2 diabetes mellitus with other specified complication (principal); F33.9 Major depressive disorder, recurrent, unspecified; L03.115 Cellulitis of right lower limb; M86.172 Other acute osteomyelitis, left ankle and foot; N18.4 Chronic kidney disease, stage 4 (severe); N17.9 Acute kidney failure, unspecified; I12.9 Hypertensive chronic kidney disease with stage 1 through stage 4 chronic kidney disease, or unspecified chronic kidney disease; E11.42 Type 2 diabetes mellitus with diabetic polyneuropathy; E11.22 Type 2 diabetes mellitus with diabetic chronic kidney disease; G89.29 Other chronic pain; B96.4 Proteus (mirabilis) (morganii) as the cause of diseases classified elsewhere; B95.62 Methicillin resistant Staphylococcus aureus infection as the cause of diseases classified elsewhere; E78.5 Hyperlipidemia, unspecified; Z79.899 Other long term (current) drug therapy; Z79.84 Long term (current) use of oral hypoglycemic drugs; Z89.432 Acquired absence of left foot; E11.649 Type 2 diabetes mellitus with hypoglycemia without coma; D63.1 Anemia in chronic kidney disease; Z98.890 Other specified postprocedural states; E11.65 Type 2 diabetes mellitus with hyperglycemia; E11.51 Type 2 diabetes mellitus with diabetic peripheral angiopathy without gangrene; F41.1 Generalized anxiety disorder
CPT/HCPCS: 36415; 36416; 80048; 80202; 83036; 85025; 86141; 87070; 87077; 87081; 87186; 87205; 97139; J0692; J1650; J1815; J3373; J7030; J7050; J7120